=== PATIENT | female | born 1945 | race Caucasian/White ===

== ENCOUNTER 2018-02-02 06:09 | Day surgery (SDC) | payer MEDICARE, BC ==
[~2018-02-02] VITALS: Ht 154.9 cm; Wt 90.9 kg
--- NOTE | ~2018-02-02 | OP ---
PATIENT NAME: CASEY ENGLAND MEDICAL RECORD: [id number] :46 LOCATION:[facility] ADMISSION DATE: SURGEON: OSITO MONDRAGON DO DATE OF OPERATION: 02/02/2018 PROCEDURE: EGD with biopsies. INDICATION FOR PROCEDURE: Epigastric pain, nausea, history of MALT lymphoma. SCOPE: Olympus video gastroscope. MEDICATIONS: Propofol 150 mg IV per anesthesia. ESTIMATED BLOOD LOSS: Minimal. COMPLICATIONS: None. FINDINGS: Informed consent was given. The patient was made comfortable with the above medication. After reaching an adequate level of sedation by slow IV push, the patient was placed on her left side. The endoscope was then advanced under direct visualization through the mouth to the second portion of the duodenum. The upper, middle, and lower thirds of the esophagus appeared normal. At the GE junction, there was some mild evidence of LA class A reflux-induced esophagitis. The endoscope was advanced beyond the GE junction into the stomach and retroflexed to view the cardia and fundus. There was not an obvious hiatal hernia visualized on today's examination. Throughout the entire stomach, there was some congestion and erythema consistent with gastritis. Random biopsies were taken from all segments of the stomach to send for histopathology and to rule out the presence of H. pylori. There were multiple gastric polyps visualized on today's examination. A couple of biopsies were taken to submit for pathology. The endoscope was advanced beyond the pylorus into the duodenum. The entire exam and duodenum appeared normal. The endoscope was then withdrawn from the patient. The patient tolerated the procedure well and there were no complications. IMPRESSION: 1. LA class A reflux-induced esophagitis. 2. Congestion and erythema consistent with gastritis, biopsies taken. 3. Multiple gastric polyps which appear to be of the fundic gland type likely related to chronic PPI use, biopsies taken. PLAN AND RECOMMENDATIONS: 1. Discharge home when recovery parameters are met. 2. Follow up biopsy specimen results. 3. Continue Protonix as prescribed. 4. Add famotidine 40 mg q.h.s. 5. Gastric emptying scan to rule out gastroparesis based on symptoms. 6. Recommend continued surveillance upper endoscopies every 2 years based on history of MALT lymphoma. TRANSINT:[id number] Voice Confirmation ID: [id number] DOCUMENT ID: [id number] OPERATIVE REPORT [id number] USRY,JUAQUINA OSITO CORDERO DO at 1119 CC: [id number] DICTATION DATE: 02/02/1839 BIODIESEL PLANT MANAGER: 02/02/18 0939 [facility] 02/02/18 [address] [place] [address]
[2018-02-02] MEDS ORDERED: HYDROCODONE-APA1 TAB PO (06:40)
[2018-02-02] MEDS ORDERED: PROTONIX40 MG PO (06:40)
[2018-02-02] MEDS ORDERED: DOXEPIN HCL75 MG PO (06:41)
[2018-02-02] MEDS ORDERED: DITROPAN X10 MG/BOTT PO (06:41)
[2018-02-02] MEDS ORDERED: ESTRACE1 MG PO (06:41)
[2018-02-02] MEDS ORDERED: TOPROL XL25 MG PO (06:42)
[2018-02-02] MEDS ORDERED: ATIVAN1 MG PO (06:42)
[2018-02-02] MEDS ORDERED: SALAGEN5 MG PO (06:42)
[2018-02-02] MEDS ORDERED: REQUIP1 MG PO (06:43)
[2018-02-02] MEDS ORDERED: CYCLOBENZAPRINE10 MG PO (06:43)
[2018-02-02 06:59] VITALS: BP 139/95; Ht 154.9 cm; Wt 90.9 kg
[2018-02-02 08:15] LABS: HEMATOCRIT 37.4 % (36.0-48.0); MCHC 29.4 g/dL (31.0-37.0); MCV 81.5 fL (80.0-100.0); MEAN PLATELET VOLUME 8.9 fL (7.4-10.4); RBC 4.59 10x6/uL (4.00-5.40); RDW 16.4 % (11.5-14.5); WBC 8.1 10x3/uL (4.8-10.8)
== END 2018-02-02 09:39 | disposition home or self-care (01) ==
LOC: D.OPS 06:09
PROVIDERS: Anesthesiology
DX: R10.13 Epigastric pain (principal); K21.0 Gastro-esophageal reflux disease with esophagitis; R11.0 Nausea; K31.7 Polyp of stomach and duodenum; Z01.812 Encounter for preprocedural laboratory examination; I10 Essential (primary) hypertension; G47.30 Sleep apnea, unspecified

== ENCOUNTER → 2018-02-09 10:59 | Outpatient (CLI) | payer MEDICARE, BC ==
[2018-02-02 06:59] VITALS: BMI 37.8
[~2018-02-09 10:59] MED LIST: ATIVAN1 MG PO; CYCLOBENZAPRINE10 MG PO; DITROPAN X10 MG/BOTT PO; DOXEPIN HCL75 MG PO; ESTRACE1 MG PO; HYDROCODONE-APA1 TAB PO; PROTONIX40 MG PO; REQUIP1 MG PO; SALAGEN5 MG PO; TOPROL XL25 MG PO
== END | disposition home or self-care (01) ==
LOC: D.NM 10:59
DX: R10.13 Epigastric pain (principal); R11.0 Nausea

== ENCOUNTER 2019-01-11 07:31 | Day surgery (SDC) | payer MEDICARE, BC ==
[~2019-01-11] VITALS: Ht 154.9 cm; Wt 83.9 kg
[2019-01-11 08:26] LABS: HEMATOCRIT 42.1 % (36.0-48.0); HEMOGLOBIN 13.7 g/dL (12-16); MCH 28.5 pg (26.0-34.0); MCHC 32.5 g/dL (31.0-37.0); MCV 87.7 fL (80.0-100.0); MEAN PLATELET VOLUME 9.6 fL (7.4-10.4); RBC 4.8 10x6/uL (4.00-5.40); RDW 13.2 % (11.5-14.5); WBC 8.6 10x3/uL (4.8-10.8)
[2019-01-11 09:01] VITALS: BP 122/57; Ht 154.9 cm; Wt 83.9 kg
--- NOTE | 2019-01-11 10:46 | NUR ---
1025-RECD FROM GI LAB. ALERT. VOLUIS IN TO REPORT FINDINGS. 1035-FULL LIQUIDS SERVED, ONLY WANTS SODA/JUICE.
--- NOTE | 2019-01-11 11:07 | NUR ---
1100-IV D/C AND DISCHARGE INSTRUCTIONS REVIEWED 1105-D/C HOME VIA WHEELCHAIR WITH FAMILY.
--- NOTE | 2019-01-13 09:41 | OP ---
PATIENT NAME: CASEY ENGLAND MEDICAL RECORD: [id number] :46 LOCATION:D.OPS ADMISSION DATE: SURGEON: OSITO MONDRAGON DO DATE OF OPERATION: 01/11/2019 PROCEDURE: Colonoscopy with polypectomy. INDICATIONS FOR PROCEDURE: History of MALT lymphoma, generalized abdominal pain, nausea and vomiting, chronic constipation. SCOPE: Olympus video pediatric colonoscope. MEDICATIONS: Propofol 430 mg IV per anesthesia. WITHDRAWAL TIME: 26 minutes. ESTIMATED BLOOD LOSS: Minimal. COMPLICATIONS: None. FINDINGS: Informed consent was given. The patient was made comfortable with the above medication. After reaching an adequate level of sedation by slow IV push, the patient was placed on her left side. A digital rectal examination was performed and revealed some external hemorrhoids. The endoscope was then advanced under direct visualization through the rectum to the cecum and terminal ileum. The endoscope was slowly withdrawn and the mucosa was carefully examined. The prep quality was fair. There were multiple polyps visualized on today's examination. Three of these polyps were located in the transverse colon. They were benign appearing and sessile and ranged in size from 3-8 mm in diameter. Two of these were removed using a hot snare and the third polyp was removed using hot forceps. In the descending colon, there was a single benign appearing sessile polyp, which measured approximately 4 mm in diameter. It was removed using hot forceps. In the sigmoid colon, there was a single polyp, which was benign appearing and sessile and measured approximately 8 mm in diameter. It was removed using a hot snare. There was evidence of moderate diverticulosis involving the sigmoid colon. Retroflexion was performed in the rectum with a normal appearing rectal wall. The endoscope was withdrawn from the patient. The patient tolerated the procedure well and there were no complications. IMPRESSION: 1. Multiple polyps as described above, removed using a combination of hot forceps and a hot snare. 2. Moderate diverticulosis of the sigmoid colon. PLAN AND RECOMMENDATIONS: 1. Discharge home when recovery parameters are met. 2. Follow up biopsy specimen results. 3. High fiber diet. 4. Consider supplementing diet with 1 tablespoon of Metamucil daily. 5. Continue current medications. 6. Proceed with upper endoscopy as scheduled for generalized abdominal pain, nausea and vomiting, and history of MALT lymphoma. 7. We will follow up in GI clinic after upper endoscopy is completed for further workup of symptoms. OPERATIVE REPORT [id number] CASEY ENGLAND 8. If bowel movements do not improve with supplementation of fiber, consider trial of Linzess 145 mcg daily. TRANSINT:[id number] Voice Confirmation ID: [id number] DOCUMENT ID: [id number] OSITO MONDRAGON DO at 0941 CC: [id number] DICTATION DATE: 01/11/19 1015 CUSTOMER RELATIONS COORDINATOR: 01/11/19 1026 [facility] 01/11/[address] [address]
== END 2019-01-11 11:05 | disposition home or self-care (01) ==
LOC: D.OPS 07:31
PROVIDERS: Anesthesiology
DX: K57.30 Diverticulosis of large intestine without perforation or abscess without bleeding (principal); D12.4 Benign neoplasm of descending colon; D12.5 Benign neoplasm of sigmoid colon; D12.3 Benign neoplasm of transverse colon; Z85.79 Personal history of other malignant neoplasms of lymphoid, hematopoietic and related tissues; Z01.812 Encounter for preprocedural laboratory examination

== ENCOUNTER 2019-01-25 09:14 | Day surgery (SDC) | payer MEDICARE, BC ==
[~2019-01-25] VITALS: Ht 154.9 cm; Wt 84.1 kg
[2019-01-25 09:52] LABS: BASOPHILS 0.6 % (0-2); EOSINOPHILS 5.1 % (0-7); HEMATOCRIT 42.5 % (36.0-48.0); HEMOGLOBIN 13.9 g/dL (12-16); IMMATURE GRANULOCYTES 0.1 % (0-5); LYMPHOCYTES 25.2 % (15-50); MCH 29.1 pg (26.0-34.0); MCHC 32.7 g/dL (31.0-37.0); MCV 88.9 fL (80.0-100.0); MEAN PLATELET VOLUME 9.3 fL (7.4-10.4); MONOCYTES 6.2 % (2-11); NEUTROPHILS 62.8 % (40-80); PLATELET COUNT 186 10x3/uL (130-400); RBC 4.78 10x6/uL (4.00-5.40); RDW 13.3 % (11.5-14.5); WBC 8.9 10x3/uL (4.8-10.8)
[2019-01-25 10:10] LABS: ANION GAP 13.5 mmol/L (8-16); CALCIUM 8.9 mg/dL (8.5-10.1); CARBON DIOXIDE 29.8 mmol/L (21.0-32.0); CREATININE - SERUM 0.9 mg/dL (0.6-1.3); POTASSIUM - SERUM 4.3 mmol/L (3.5-5.1)
[2019-01-25] MEDS ORDERED: HYDROXYZINE HCL50 MG PO (10:16)
[2019-01-25 10:23] VITALS: Ht 154.9 cm; Wt 84.1 kg
--- NOTE | 2019-01-25 12:25 | NUR ---
DC INSTRUCTIONS GIVEN TO PT/FAMILY. STATE UNDERSTANDING. DC'D IV CATH FULLY INTACT.
--- NOTE | 2019-01-25 13:57 | NUR ---
PT LEFT UNIT VIA WC AT 1250
--- NOTE | 2019-01-27 12:06 | OP ---
PATIENT NAME: CASEY ENGLAND MEDICAL RECORD: [id number] :46 LOCATION:D.OPS ADMISSION DATE: SURGEON: OSITO MONDRAGON DO DATE OF OPERATION: 01/25/2019 PROCEDURE: EGD with biopsies. INDICATIONS FOR PROCEDURE: History of MALT lymphoma, nausea and vomiting, generalized abdominal pain. SCOPE: Olympus video gastroscope. MEDICATIONS: Propofol 150 mg IV per anesthesia. ESTIMATED BLOOD LOSS: Minimal. COMPLICATIONS: None. FINDINGS: Informed consent was given. The patient was made comfortable with the above medication. After reaching an adequate level of sedation by slow IV push, the patient was placed on her left side. The endoscope was advanced under direct visualization through the mouth to the second portion of the duodenum. The entire esophagus appeared normal. At the GE junction, there were minor changes consistent with LA class A reflux-induced esophagitis. The endoscope was advanced beyond the GE junction into the stomach and retroflexed to view the cardia and fundus, which appeared normal. Throughout the entire stomach, there were changes consistent with possible gastritis. There was congestion of the mucosa, erythema, and granularity. Multiple cold forceps biopsies were taken to submit for histopathology and to rule out the presence of H. pylori. There were multiple benign-appearing fundic gland type polyps present in the stomach. A single biopsy was taken to confirm their benign nature. The endoscope was advanced beyond the pylorus into the duodenum. The duodenum appeared normal down to the second portion. Random cold forceps biopsies were taken to submit for histopathology. The endoscope was withdrawn from the patient. The patient tolerated the procedure well and there were no complications. IMPRESSION: 1. LA class A reflux-induced esophagitis. 2. Gastritis characterized mostly by congestion of the stomach with some erythema and granularity. 3. Multiple benign-appearing gastric polyps. Biopsies pending. PLAN AND RECOMMENDATIONS: 1. Discharge home when recovery parameters are met. 2. Follow up biopsy specimen results. 3. GERD diet and reflux precautions. 4. Continue current medications. 5. Add famotidine 40 mg tablets once daily. 6. We will provide a trial of dicyclomine 20 mg b.i.d. p.r.n. abdominal pain. 7. Follow up in GI clinic in 2-3 weeks. TRANSINT:[id number] Voice Confirmation ID: [id number] DOCUMENT ID: [id number] OPERATIVE REPORT [id number] CASEY ENGLAND NATHAN A DO at 1206 CC: [id number] DICTATION DATE: 01/25/19 1154 SOFTWARE DEVELOPMENT LEADER: 01/25/19 1241 [facility] 01/25/19 [facility] [address] [id number]
== END 2019-01-25 12:50 | disposition home or self-care (01) ==
LOC: D.OPS 09:14
PROVIDERS: Anesthesiology; ATTEND Internal Medicine Gastroenterology
DX: K29.50 Unspecified chronic gastritis without bleeding (principal); K31.7 Polyp of stomach and duodenum; K21.0 Gastro-esophageal reflux disease with esophagitis; Z85.79 Personal history of other malignant neoplasms of lymphoid, hematopoietic and related tissues; Z01.812 Encounter for preprocedural laboratory examination

== ENCOUNTER 2020-05-08 08:56 | Day surgery (SDC) | payer MEDICARE, BC ==
[~2020-05-08] VITALS: Ht 154.9 cm; Wt 86.4 kg
[~2020-05-08 08:56] MED LIST changes: +HYDROXYZINE HCL50 MG PO
[2020-05-08 09:31] LABS: BASOPHILS 0.7 % (0-2); EOSINOPHILS 5.2 % (0-7); HEMOGLOBIN 14.1 g/dL (12-16); IMMATURE GRANULOCYTES 0.1 % (0-5); LYMPHOCYTES 36.7 % (15-50); MCH 28.3 pg (26.0-34.0); MCHC 30.7 g/dL (31.0-37.0); MCV 92.4 fL (80.0-100.0); MEAN PLATELET VOLUME 8.8 fL (7.4-10.4); MONOCYTES 7.6 % (2-11); NEUTROPHILS 49.7 % (40-80); PLATELET COUNT 190 10x3/uL (130-400); RBC 4.98 10x6/uL (4.00-5.40); RDW 13.3 % (11.5-14.5); WBC 6.9 10x3/uL (4.8-10.8)
[2020-05-08 09:33] LABS: ANION GAP 7.5 mmol/L (8-16); CALCIUM 8.7 mg/dL (8.5-10.1); CARBON DIOXIDE 31.8 mmol/L (21.0-32.0); POTASSIUM - SERUM 4.3 mmol/L (3.5-5.1)
[2020-05-08] MEDS ORDERED: KLONOPIN0.5 MG PO (09:40)
[2020-05-08 09:52] VITALS: BP 146/67; Ht 154.9 cm; Wt 86.4 kg
--- NOTE | 2020-05-09 07:11 | OP ---
PATIENT NAME: CASEY ENGLAND MEDICAL RECORD: [id number] :46 LOCATION:D.OPS ADMISSION DATE: SURGEON: OSITO MONDRAGON DO DATE OF OPERATION: 05/08/2020 PROCEDURE: EGD with biopsies and balloon dilation. INDICATION FOR PROCEDURE: Generalized abdominal pain, gas and bloating, nausea, dysphagia, GERD, history of MALT lymphoma. SCOPE: Olympus video gastroscope. MEDICATIONS: Propofol 150 mg IV per anesthesia. ESTIMATED BLOOD LOSS: Minimal. COMPLICATIONS: None. FINDINGS: Informed consent was given. The patient was made comfortable with the above medication. After reaching an adequate level of sedation by slow IV push, the patient was placed on her left side. The endoscope was advanced under direct visualization through the mouth to the second portion of the duodenum with ease. The upper, middle, and lower thirds of the esophagus appeared normal. Cold forceps biopsies were taken randomly from the mid esophagus to rule out the presence of eosinophils. At the GE junction, there were minor changes consistent with LA class A reflux-induced esophagitis and some possible esophageal stenosis. An 18-20 mm CRE dilating balloon was used to dilate the distal esophagus to 20 mm maximum diameter successfully. The endoscope was advanced beyond the GE junction into the stomach and retroflexed to view the cardia which appeared normal. The fundus also appeared normal. In the fundus and gastric body, there were multiple gastric polyps, which appeared benign and appeared consistent with fundic gland polyps. One was biopsied using cold forceps to submit for histopathology and to confirm the benign nature. Throughout the body, antrum, and prepyloric regions, there were patchy areas of erythema and granularity and friability. Cold forceps biopsies were taken from the antrum and incisura to submit for histopathology and to rule out the presence of H. pylori. The endoscope was advanced beyond the pylorus into the duodenum which appeared normal to the second portion. The endoscope was withdrawn from the patient. The patient tolerated the procedure well and there were no complications. IMPRESSION: 1. LA class A reflux-induced esophagitis. 2. Mild esophageal stenosis of the distal esophagus and GE junction, status post dilation to 20 mm maximum diameter. 3. Chronic gastritis changes. 4. Multiple benign-appearing fundic gland type gastric polyps, status post biopsy with cold forceps. PLAN AND RECOMMENDATIONS: 1. Discharge home when recovery parameters are met. 2. Follow up biopsy specimen results. 3. GERD diet and reflux precautions. 4. Continue current medications. 5. Pantoprazole 40 mg daily. OPERATIVE REPORT [id number] CASEY ENGLAND 6. Carafate suspension 1 g q.i.d. from other medications by 2 hours. 7. Gastric emptying scan regarding upper digestive symptoms, which sound consistent with gastroparesis. 8. Follow up in GI clinic in 3-4 weeks. 9. If dysphagia persists, consider manometry study. NTS:[id number] Voice Confirmation ID: [id number] DOCUMENT ID: [id number] OSITO MONDRAGON DO at 0711 CC: [id number] DICTATION DATE: 05/08/20 105 SENIOR CORE JAVA DEVELOPER: 05/08/209 [facility] 05/08/20 [facility] [address] [place] [address]
== END 2020-05-08 11:35 | disposition home or self-care (01) ==
LOC: D.OPS 08:56
PROVIDERS: Anesthesiology; ATTEND Internal Medicine Gastroenterology
DX: R10.84 Generalized abdominal pain (principal); R14.0 Abdominal distension (gaseous); R11.0 Nausea; R13.10 Dysphagia, unspecified; K21.9 Gastro-esophageal reflux disease without esophagitis; Z85.72 Personal history of non-Hodgkin lymphomas; K21.0 Gastro-esophageal reflux disease with esophagitis; K22.2 Esophageal obstruction; J45.909 Unspecified asthma, uncomplicated; K76.0 Fatty (change of) liver, not elsewhere classified; Z86.010 Personal history of colon polyps

== ENCOUNTER 2020-07-10 00:05 | Inpatient (IN) | payer MEDICARE, BC ==
[2020-07-07 11:47] LABS: BASOPHILS 0.7 % (0-2); EOSINOPHILS 5.1 % (0-7); HEMATOCRIT 43.9 % (36.0-48.0); HEMOGLOBIN 13.5 g/dL (12-16); LYMPHOCYTES 37.1 % (15-50); MCH 28.3 pg (26.0-34.0); MCHC 30.8 g/dL (31.0-37.0); MEAN PLATELET VOLUME 8.8 fL (7.4-10.4); NEUTROPHILS 49.1 % (40-80); PLATELET COUNT 191 10x3/uL (130-400); RBC 4.77 10x6/uL (4.00-5.40); RDW 13.8 % (11.5-14.5); WBC 5.7 10x3/uL (4.8-10.8)
[2020-07-07 11:58] LABS: ANION GAP 10.4 mmol/L (8-16); APTT 47.9 SECONDS (22.8-39.4); CALCIUM 9.4 mg/dL (8.5-10.1); CARBON DIOXIDE 32.7 mmol/L (21.0-32.0); INR 1.55 (0.85-1.17); POTASSIUM - SERUM 4.1 mmol/L (3.5-5.1); PROTIME 18.4 SECONDS (11.6-15.0)
[2020-07-07 12:23] LABS: UDS - AMPHET NEGATIVE QUAL (NEGATIVE); UDS - BARB NEGATIVE QUAL (NEGATIVE); UDS - BENZO NEGATIVE QUAL (NEGATIVE); UDS - COCAINE NEGATIVE QUAL (NEGATIVE); UDS - OPIATE NEGATIVE QUAL (NEGATIVE); UDS - PCP NEGATIVE QUAL (NEGATIVE); UDS - THC NEGATIVE QUAL (NEGATIVE)
--- NOTE | 2020-07-09 23:50 | NUR ---
REC'D PT TO RM 1273 VIA W/C PER ED NURSE TO AWAIT ADMISSION AFTER MIDNIGHT PER DR MORIN ORDERS. ADMISSION CALLS UNIT WANTING TO KNOW WHAT STATUS TO PLACE PAITENT IN. PT TO NOT BE ADMITTED UNTIL AFTER MIDNIGHT AND HAS A PREIN NUMBER. THIS RN NOTICES PT HAS BEEN FULLY ADMITTED W/AN ADMISSION NUMBER AND CALLS ER ADMISSIONS TO INFORM THEM THAT PT HAS A PREIN NUMBER. MEDICAL RECORDS WILL HAVE TO MERGE CHARTS. PT'S INSURANCE WILL NOT COVER UNTIL DAY OF SURGERY.
[~2020-07-10] VITALS: Ht 154.9 cm; Wt 104.3 kg
[2020-07-10] VITALS (7 sets, daily range): BP systolic 108–153; BP diastolic 53–68; BMI 43.5
--- NOTE | ~2020-07-10 | OP ---
PATIENT NAME: CASEY ENGLAND MEDICAL RECORD: [id number] :46 LOCATION:[facility] D.1273 ADMISSION DATE:07/11/20 SURGEON: MARY MORIN MD DATE OF OPERATION: 07/10/2020 PREOPERATIVE DIAGNOSES: 1. Rectocele. 2. Enterocele. POSTOPERATIVE DIAGNOSES: 1. Rectocele. 2. Enterocele. PROCEDURES PERFORMED: 1. Enterocele repair. 2. Posterior colporrhaphy with fascial graft placement. SURGEON: MARY MORIN MD ANESTHESIOLOGIST: Tera York MD ANESTHETIC: General. FINDINGS: Anterior enterocele present. Rectocele present with prolapse of the posterior vault to the introitus. Unremarkable bladder mucosa and good efflux of urine from both ureteral orifices. SPECIMENS REMOVED: None applicable. SPECIMEN DISPOSITION: None applicable. ESTIMATED BLOOD LOSS: 150 mL. FLUIDS: 1100 mL of lactated Ringer's. URINE OUTPUT: Quantity sufficient. COMPLICATIONS: None. DRAIN: Esteban to gravity with vaginal packing. INDICATION: The patient is a 74-year-old female with pelvic prolapse and splinting. The patient states that there is an uncomfortable bulge consistently at her introitus. The patient has been given options of attempted pessary versus surgical intervention and the patient desires surgery. Risks, benefits, and limitations have been described. DESCRIPTION OF PROCEDURE: After informed consent is assured, the patient is taken to the operating room where anesthetic is obtained. The patient is now prepped and draped and placed in stirrups. The posterior defect and enterocele are examined. The space is injected with 0.5% lidocaine solution with epinephrine. After this full-thickness injection of approximately 20 mL of diluted lidocaine with epinephrine is placed, an incision is made with 15 blade across the posterior fourchette. The mucosa of the posterior vault is undermined with Metzenbaum scissors. This is carried out all the way to the OPERATIVE REPORT [id number] CASEY ENGLAND apex of the defect at the top of the vagina. The mucosa is now dissected free both right and left sides with sharp dissection as well as with use of neuro patties. Once the full-thickness dissection is completed, the enterocele sac is identified and entered sharply. The bowel is packed away with a laparotomy sponge and both the right and left uterosacral ligaments are identified. Uterosacral ligaments are now plicated with Ethibond stitch and a stitch is carried through the vaginal mucosa in this complex that has been created. The hernia sac is now reduced and closed with 2 pursestring stitches. Attention is now directed posteriorly. A large defect is noted with diminished tissue for repair. At the proximal segment of the vagina, a layer of endopelvic fascia is pulled together and horizontal mattress stitches are applied to repair the defect that is seen here. The superior defect is repaired using a fascial graft. The vaginal graft is reconstituted after being cut with 2 arms that will be placed over the sacrospinous ligaments. Sacrospinous ligaments are located and Capio SLIM suture dental technician metal is used to place a Prolene stitch through each ligament on both right and left sides. The stitch is brought through the arms of the fascial graft and tied into place. The fascial graft is now cut to fit to the posterior vault and interrupted Vicryl stitches are used to place this to the endopelvic fascia. Mucosa is trimmed and closed over this. A V-shaped incision is made over the perineal body and this tissue is removed. The skin here is closed with a subcuticular stitch and secured into the vaginal vault. Cystoscopy is now performed. The aforementioned stitch that was brought through the uterosacral ligament complex through the vagina is tied, securing the apex to the vaginal support. Cystoscopy is now performed. Mucosa is intact and good flow of urine seen both from right and left ureters. The cystoscopy is discontinued, Esteban catheter started, and vaginal packing placed. Sponge, lap, needle counts correct times 2. The patient is awakened and went to the recovery area in stable condition. NTS:[id number] Voice Confirmation ID: [id number] DOCUMENT ID: [id number] MARY MORIN MD CC: [id number] DICTATION DATE: 07/24/20 1352 INFANT ROOM TEACHER: 07/24/201927 DIS IN 07/14/20 [facility] [address] [place] [address]
[~2020-07-10 00:05] MED LIST changes: +CARAFATE1 G/10 ML PO; +KLONOPIN0.5 MG PO; +LAMICTAL200 M1 PO; +LEXAPRO20 MG PO; +REGLAN5 MG PO; +TRAZODONE TAB 100 PO; +TYLENOL W/CODEI1 TAB PO
[2020-07-10] MEDS ORDERED: ACETAMINOPHEN500 M1 PO (00:15)
--- NOTE | 2020-07-10 00:50 | NUR ---
ADMISSIONS CONTINUES TO GET PT'S ADMISSONS STATUS CORRECTED. ADMISSION COMPLETED IN INCORRECT PT #. PT LYING AWAKE IN BED. ASSISTED W/GETTING WIFI CONNECTED ON HER PHONE. PT REMINDED THAT SHE IS TO BE NPO. PT AGREEABLE. FALL PRECAUTIONS THAT PT IS AGREEABLE PUT INTO PLACE. YELLOW STAR PLACED ON DOOR. YELLOW GOWN PROVIDED, YELLOW ID BRACLET PLACED ON PT. NON SKID SOCKS PROVIDED (PT HAS HER OWN NON SKID HOUSE SHOES THAT SHE PREFERS), BED IN LOW POSITION, SIDE RAILS UP X 2. CALL LIGHT AND PHONE AT PT'S BEDSIDE. CLEAR PATH TO BR. PT DENIES NEEDING ASSISTANCE W/GETTING OOB, BUT OFFER MADE TO RING CALL LIGHT IF SHE FEELS THE NEED FOR ASSISTANCE WHEN GETTING OOB. PT AGREEABLE. PT REFUSES BED ALARM. SIGNS RELEASE OF RESPONSIBILITY. DENIES NEEDS OTHER THAN HER SLEEPING MEDICATION. SLEEP MED TRAZODONE 50MG PO GIVEN (SCANNED UNDER [id number]).
--- NOTE | 2020-07-10 02:00 | NUR ---
ROUNDS MADE. PT RESTING TO RT SIDE W/EYES CLOSED. HOB ELEVATED. RESP EVEN AND UNLABORED. PT LEFT UNDISTURBED AT THIS TIME TO ALLOW FOR REST.
--- NOTE | 2020-07-10 04:00 | NUR ---
ROUNDS MADE. PT NOW RESTING IN LOW CARRINGTON'S POSITION W/EYES CLOSED. RESP EVEN AND UNLABORED. PT LEFT UNDISTURBED.
--- NOTE | 2020-07-10 05:15 | NUR ---
Luis Miguel CALZADA RN TO BEDSIDE TO ASSIST PT OOB UP TO BR. PT ABLE TO VOID. RETURNS TO BED. LR STARTED TO LEFT PIV AT 50ML, IV PREOP MEDS GIVEN. SEE EMAR. PT CURRENTLY DENIES PAIN. SURGERY PREOP CHECKLIST COMPLETED. SEE PROCESS INTERVENTIONS. PT GOWNED IN YELLOW GOWN. REFUSES NONSKID BLUE SOCKS. BED REMAINS IN LOW POSITION. SIDE RAILS UP X 2. CALL LIGHT AND PHONE AT PT'S SIDE./
--- NOTE | 2020-07-10 11:00 | NUR ---
RECEIVED BY BED FROM RECOVERY WITH BEDSIDE REPORT FROM Dixon CORDOVA RN. PT IS STILL DROWSY BUT DOES RESPOND TO VERBAL COMMAND. O2 SAT 94% WITH PT CURRENTLY ON 6L O2 VIA NC, PER RECOVERY ROOM NURSE RESP THERAPY IS AWARE OF THIS DUE TO PT RECIEVING UPDRAFT PRIOR TO COMING DOWN. IV INFUSING TO L HAND PER ORDERS. GIRARD CATH TO BEDSIDE DRAIN WITH 50ML DARK BLUE URINE NOTED. SCD BILAT PER ORDERS AND PUMP TURNED ON . PER PT REQUEST TILTED TO LEFT SIDE, NOTED VAG PACKING IN PLACE, SMALL AMOUNT BLEEDING NOTED TO UNDERPAD WHICH IS CHANGED EASILY. ABDOMEN SOFT TO TOUCH WITH BOWEL SOUNDS PRESENT BUT NOTED TO BE DECREASED IN BOTH LOWER QUAD. CALL LIGHT IN REACH WITH SIDE RAILS UP X 2.
--- NOTE | 2020-07-10 11:18 | NUR ---
DR MORIN ON UNIT QUESTIONS URINE OUTPUT, REPORT GIVEN THAT 50ML WAS NOTED TO COLLECTION CANISTER. ORDERS RECEIVED TO HOLD TORDOL UNTIL INCREASE OUTPUT NOTED AND GIVE 1000ML LR BOLUS. ALSO REPORTED PT 02SAT AND THAT SHE DID NOT BRING HER C-PAP, CONSULT RESP THEREPY PER MD.
--- NOTE | 2020-07-10 11:30 | NUR ---
UNDERPAD CHANGED AND PT MOVED UP IN BED WITH ASSISTANCE FROM Nirmal NOEL RN. PT ABLE TO TURN HERSELF TO LEFT LATERAL. IV RATE INCREASED TO 999ML/HR. SIDE RAILS UP X 2 WITH CALL LIGHT IN REACH. PT STILL VERY DROWSY BUT ABLE TO FOLLOW COMMANDS, O2 VIA NC REMAINS AT 6L WITH SAT OF 92-94%, resp therepy has been consulted.
--- NOTE | 2020-07-10 12:30 | NUR ---
FLUID BOLUS COMPLETED, 150ML BLUE URINE NOTED TO COLLECTION CANISTER OF GIRARD. PT ABLE TO TAKE MEDS SCANNED TO EMAR, ALSO TOLERATES WATER AND GIVEN LEMON MODOC SODA REQUESTED. REMAINS ON HER LEFT SIDE REQUESTED, SIDE RAILS UP X 2 WITH CALL LIGHT IN REACH.
--- NOTE | 2020-07-10 14:00 | NUR ---
PT RESTING WITH EYES CLOSED AND RESP UNLABORED, O2 SAT 95-98% AT THIS TIME. OXYGEN LEVEL DECREASED TO 4L VIA NC. CALL LIGHT IN REACH. 100ML BLUE URINE NOTED TO COLLECTION CANISTER.
--- NOTE | 2020-07-10 15:45 | NUR ---
PT MORE AWAKE AND ASKING FOR PAIN MED RATES PAIN AT 8/10 AND STATES IT IS CONSTANT. PERCOCET 5/325MG GIVEN WITH UNDERSTANDING PAIN WILL BE REASSESSED IN AN HOUR AND IF NEEDED ADDITIONAL PERCOCET COULD BE GIVEN. PT STATED THAT SHE WOULD RATHER NOT HAVE DILAUDID DUE TO WAY IT MAKES HER FEEL. LARGE CUP OF ICE REQUESTED.
--- NOTE | 2020-07-10 16:30 | NUR ---
PT CONTINUE TO RATE PAIN AT 6/10, 2ND PERCOCET 5/325MG GIVEN PO. SHE STATES UNDERSTANDING PAIN MED CAN NOT BE GIVEN UNTIL 4 HOURS FROM TIME OF 2ND DOSE. MOVED UP WITH ASSISTANCE AND TURNED TO HER RIGHT SIDE. LARGE ICE WATER REQUESTED. SIDE RAILS UP X 2 WITH PHONE AND CALL LIGHT IN REACH.
--- NOTE | 2020-07-10 17:45 | NUR ---
PT RESTING WITH EYES CLOSED, O2 SAT 96% WHILE SLEEPING. NO DISTRESS NOTED, CALL LIGHT IN REACH WITH SIDE RAILS UP X 2.
--- NOTE | 2020-07-10 19:04 | NUR ---
DR MORIN CALLED TO ASK IF HOME MEDS NEED TO BE RESTARTED. MD GIVES ORDERS TO RESTART HOME MEDS THAT PT REPORTS SHE TAKES.
--- NOTE | 2020-07-10 19:30 | NUR ---
ROUNDS MADE FOR SHIFT ASSESSMENT. PT CURRENTLY SLEEPING W/HOB ELEVATED. NC REMAINS IN PLACE. RATE INCREASED TO 6L TO MAINTAIN O2 SAT OF 95%. RESP EVEN AND UNLABORED. PT LEFT UNDISTURBED AT THIS TIME.
--- NOTE | 2020-07-10 20:00 | NUR ---
RN TO BEDSIDE TO PERFORM SHIFT ASSESSMENT. PT WAKENED FOR ASSESSMENT AND PAIN ASSESSMENT. PT REPORTS RT SHOULDER PAIN. OFFER MADE TO ASSIST W/REPOSITIONING. PT AGREEABLE. SEE FLOWSHEET FOR DOCUMENTATION. PT ASSISTED W/REPOSITIONING TO LEFT LATERAL TILT. PILLOWS PROVIDED FOR PT'S COMFORT. PT REPORTS SHE FEELS PAIN, BUT UNABLE TO GIVE A PAIN SCORE BEFORE DOZING BACK OFF. SCHEDULED PO MEDS GIVEN. SEE EMAR. BED IN LOW POSITION, SIDE RAILS UP X 2, BEDSIDE TABLE MOVED TO LEFT SIDE OF BED FOR PT'S EASY REACH. NS REMAINS ON PT. RATE DECREASED TO 4L TO MAINTAIN O2 SAT.
--- NOTE | 2020-07-10 21:15 | NUR ---
ROUNDS MADE. PT CONTINUES TO BE DROWZY. ABLE TO WAKE EASILY, BUT DRIFTS OFF TO SLEEP WHILE RN SPEAKING TO HER. ATTEMPTS TO ASSESS PAIN, PT UNABLE TO REMAIN AWAKE TO DESCRIBE OR C/O PAIN. NEW BAG OF LR UP TO INFUSE AT 125ML/HR. URINE OUTPUT NOTED 125ML. LIGHT BLUE URINE NOTED.
--- NOTE | 2020-07-10 22:15 | NUR ---
ROUNDS MADE. PT REMAINS IN HIGH CARRINGTON'S W/EYES CLOSED. RESP EVEN. NC REMAINS IN PLACE. PULSE OX REMAINS ON PT'S FINGER. NO DISTRESS NOTED. PT LEFT UNDISTURBED TO ALLOW FOR REST.
--- NOTE | 2020-07-10 23:18 | NUR ---
ROUNDS MADE. PT CONTINUES TO SLEEP IN HIGH CARRINGTON'S. NO DISTRESS NOTED. PT LEFT UNDISTURBED AT THIS TIME.
--- NOTE | 2020-07-11 | NUR ---
RN TO BEDSIDE FOR ROUNDING,VITALS AND I&O. PT WAKENED W/MODERATE STIMULUS. BECOMES AWAKE AND ALERT ENOUGH TO RELAY DISCOMFORT, BUT DOES NOT REQUEST PAIN MEDICATION. PT QUESTIONED IF SHE'D LIKE TO REPOSITION. PT DOES. THIS RN AND Rachel JARA RN ASSIST PT WIH REPOSITIONING TO RT SIDE. PILLOWS PROVIDED FOR COMFORT. ICE CHIPS SERVED TO PT. BED REMAINS IN LOW POSITION. SIDE RAILS UP X 2 CALL LIGHT AT SIDE. BEDSIDE TABLE ON RT SIDE OF PT FOR EASY REACH. NO FURTHER NEEDS VOICED.
[2020-07-11 00:02] VITALS: BP 123/58
--- NOTE | 2020-07-11 01:44 | NUR ---
pt's iv pump sounding. this rn to bedside for assessment. pt remains to rt side. sleeping, but stirs with movement in the room. pt's hand repositioned. nash cath noted to have approx 60ml in urometer.
--- NOTE | 2020-07-11 03:45 | NUR ---
ROUNDS MADE. PT AWAKE AND ALERT. PAIN AND NEEDS ASSESSED. PT DENIES PAIN. REQUEST FRESH COLA. FRESH ICE SERVED AND PT'S COLA SERVED. NC AT 4L NEEDED TO MAINTAIN O2 SAT WHILE PT AWAKE AND TALKING. APPROX 250ML URINE NOTED IN UROMETER. PT ABLE TO HOLD CONVERSATION FOR SEVERAL MINUTES WITH RN.
--- NOTE | 2020-07-11 04:30 | NUR ---
RN TO BEDSIDE FOR ROUNDING. PT AA&O. PT NOW C/O KNEE PAIN AND REPORTS SHE DOESN'T FEEL LIKE SHE CAN MOVE IT. PAIN MEDICATION OFFERED. PT ACCEPTS. RATES KNEE PAIN 08/03. PERCOCET 5MG PO GIVEN AND 2 CUPS JEELO SERVED. VITAL SIGNS OBTAINED. SEE FLOWSHEET. NEW BAG OF LR TO ROOM TO ADMIN AFTER LAST 100ML IN PRESENT BAG COMPLETE. PT DECLINES REPOSITIONING AT THIS TIME UNTIL PAIN MEDICATION BEGINS TO HELP HER KNEE PAIN. P DENIES FURTHER NEEDS.
[2020-07-11 04:51] VITALS: BP 117/57
--- NOTE | 2020-07-11 05:30 | NUR ---
PT REPOSITIONED W/MINIMAL ASSISTANCE TO LEFT SIDE. PINK PAD/CHUX CHANGED. GIRARD EMPTIED W/APPROX 900ML NOTED. IV PUMP CLEARED.
--- NOTE | 2020-07-11 06:11 | NUR ---
RN TO BEDSIDE TO ADMIN SCHEDULED MEDS. SEE EMAR.
[2020-07-11 07:17] VITALS: BP 105/51
--- NOTE | 2020-07-11 07:17 | NUR ---
RECEIVED PT LYING TO LEFT SIDE IN BED. AWAKE. AAO X 3. VSS. HRRR WITHOUT AUDIBLE MURMUR. BBS CLEAR. BS HYPOACTIVE TO LOWER QUADS. ABDOMEN SOFT/NON-DISTNEDED. VAG PACKING NOTED WITH BRIGHT RED BLOOD NOTED TO EXPOSED PORTION. SCANT AMT OF BRIGHT RED BLOOD NOTED TO TOWEL UNDER PATIENT. NEG HOMANS' SIGN. PPP. NO EDEMA NOTED TO BLE. SCDS ON BLE. PUMP ON. GIRARD TO GRAVITY DRAINING LIGHT GREEN URINE-CLEAR. PIV SITE CLEAR TO LEFT HAND. LR INFUSING AT 125 ML/HR. PT C/O PRESSURE TO RECTUM AND VAGINAL AREAS. STATES "IT HURTS WHEN I COUGH". STATES "I'VE HAD A COUGH FOR A LONG TIME". DENIES SHORTNESS OF BREATH OR PRODUCTIVE COUGH. BBS NOTED TO BE CLEAR AT THIS TIME. PT REPOSITIONS TO SEMI-CARRINGTON'S POSITION FOR CLEAR LIQUID DIET. DENIES NAUSEA. REQUESTS AND RECEIVES JELLO. PT MOVES WELL IN BED PER SELF. SR UP X 2. CALL LIGHT IN REACH. YELLOW GOWN, ARMBAND AND STAR IN PLACE.
--- NOTE | 2020-07-11 08:25 | NUR ---
PT CONSUMES 90% OF CLEAR LIQUID DIET. INSTRUCTED ON INCENTIVE SPIROMETER. PULLS 800 AT THIS TIME.
--- NOTE | 2020-07-11 09:28 | NUR ---
DR MORIN CALLS. PT STATUS UPDATE GIVEN, INCLUDING O2 SAT'S AND PT ON 4 LITERS O2 PER N/C. ORDERS RECEIVED.
--- NOTE | 2020-07-11 09:30 | NUR ---
PIV CONVERTED TO SALINE LOCK.
--- NOTE | 2020-07-11 09:35 | NUR ---
RESPIRATORY STAFF NOTIFIED OF NEED FOR UPDRAFT NOW.
--- NOTE | 2020-07-11 09:41 | NUR ---
DR ELMER BRITT.
--- NOTE | 2020-07-11 09:59 | NUR ---
REGULAR DIET SERVED. PT ASSISTED WITH PREPARING BISCUIT. PT SITS UP IN BED.
--- NOTE | 2020-07-11 10:15 | NUR ---
PT CONSUMES BISCUIT AND BOWSER. TOLERATES WELL. VAGINAL PACKING-1 KURLIX REMOVED WITH BROWN AND RED DISCHARGE NOTED. GIRARD DC'D WITH 190 ML OF CLEAR, GREEN URINE NOTED IN BAG. PT DENIES URGE TO VOID AT THIS TIME.
--- NOTE | 2020-07-11 10:30 | NUR ---
RT TO ROOM FOR UPDRAFT TREATMENT.
--- NOTE | 2020-07-11 10:50 | NUR ---
PT LYING TO RIGHT SIDE. EYES CLOSED. RESP NON-LABORED. PT NOT DISTURBED TO ALLOW FOR REST.
[2020-07-11 11:32] VITALS: BP 117/59
--- NOTE | 2020-07-11 11:36 | NUR ---
PT C/O H/A AND PAIN TO PERINEUM OF "7" ON 0-10 PAIN SCALE. PERCOCET 5/325 2 TABS GIVEN PO ORDERED. PT INSTRUCTED ON MED. VERBALIZES UNDERSTANDING.
--- NOTE | 2020-07-11 11:37 | NUR ---
VSS. PT SITS UP ON SIDE OF BED. C/O DIZZINESS. THIS NURSE AND LMCEARL RN AT BEDSIDE WITH PT.
--- NOTE | 2020-07-11 11:50 | NUR ---
PT STATES DESIRE TO STAND. PT STANDS WITH ASSISTANCE. PT AMBULATES TO BR WITH 2 ASSISTS. PT GAIT UNSTEADY AT TIMES. THIS NURSE AND ARIEL MAGAÑA WITH PT.
--- NOTE | 2020-07-11 12:06 | NUR ---
PT UNABLE TO VOID. PANTIES AND PAD ON. SMEAR OF OLD BLOOD NOTED ON PREVIOUS PAD. PT AMBULATES, UNSTEADY GAIT AT TIMES, X 2 ASSISTS BACK TO BED. O2 BACK ON AT 4 LITERS PER N/C. SCDS ON BLE. PUMP ON. PT OSEAS ACTIVITY WELL.
--- NOTE | 2020-07-11 12:33 | NUR ---
PT SITTING UP IN BED. CONSUMING LUNCH. DENIES C/O OR NEEDS.
--- NOTE | 2020-07-11 12:50 | NUR ---
DR MORIN VISITS WITH PT.
--- NOTE | 2020-07-11 14:21 | NUR ---
RADIOLOGY DEPT HERE TO OBTAIN CHEST X-RAY.
--- NOTE | 2020-07-11 15:18 | NUR ---
PT SITTING UP IN BED. WAKES UPON VERBAL STIMULATION. C/O H/A AND PAIN/PRESSURE TO RECTAL AREA OF "8" ON 0-10 PAIN SCALE. TORADOL 10 MG GIVEN PO ORDERED. PT INSTRUCTED ON MED. VERBALIZES UNDERSTANDING.
[2020-07-11 15:20] VITALS: BP 122/58
--- NOTE | 2020-07-11 15:30 | NUR ---
PT OOB AND AMB TO BR X 2 ASSISTS. PT WITH UNSTEADY GAIT. PT VOIDS SMALL, UNMEASURED AMOUNT OF BLOOD-TINGED URINEE-PT MISSED SPECIPAN. PERICARE DONE. PAD CHANGED WITH SMALL AMT OF SEROSANGUINOUS DISCHARGE NOTED. BED LINENS CHANGED. PT AMB BACK TO BED X 2 ASSISTS. OSEAS ACTIVITY WELL. SRUP X 2. CALL LIGHT IN REACH. SCDS ON BLE. PUMP ON.
--- NOTE | 2020-07-11 15:58 | NUR ---
PT PROVIDED ICE WATER AND ENCOURAGED TO CONSUME MUCH TOLERATED.
--- NOTE | 2020-07-11 16:03 | NUR ---
BREATH SOUNDS CLEAR EXCEPT TO RIGHT LOWER QUAD WITH EXPIRATORY CRACKLES. PT HAS NON-PRODUCTIVE COUGH. DENIES SHORTNESS OF BREATH.
--- NOTE | 2020-07-11 16:22 | NUR ---
DR PAYNE TO ROOM. VISITS WITH PT.
--- NOTE | 2020-07-11 17:00 | NUR ---
PT STATES HAS SLIGHT URGE TO VOID. PT OOB AND AMB TO BR X 1 ASSIST. GAIT IMPROVED.
--- NOTE | 2020-07-11 17:25 | NUR ---
PT UNABLE TO VOID. PERICARE DONE PER PT. SMALL AMT OF SEROSANGUINOUS DISCHARGE NOTED ON CHANGED PERIPAD. NEW PERIPAD IN PLACE. PT AMB BACK TO BED X 1 ASSIST. SCDS ON BLE. PUMP ON.
--- NOTE | 2020-07-11 17:30 | NUR ---
BLADDER SCAN X 2-330 ML AND 338 ML NOTED.
--- NOTE | 2020-07-11 17:55 | NUR ---
REGULAR DIET SERVED. PT DENIES NAUSEA.
--- NOTE | 2020-07-11 17:58 | NUR ---
SL FLUSHES EASILY WITH 10 ML NS. SITE RETAPED AND SECURED. ROCEPHIN 1 GRAM IVP UP AT THIS TIME. SITE CLEAR. PT INSTRUCTED ON MED. VERBALIZES UNDERSTANDING.
--- NOTE | 2020-07-11 18:01 | NUR ---
DR MORIN NOTIFIED OF PT UNABLE TO VOID, BLADDER SCAN VOLUMES. ORDER RECEIVED.
--- NOTE | 2020-07-11 18:06 | NUR ---
RESPIRATORY STAFF NOTIFIED OF CHANGES TO ORDERS.
--- NOTE | 2020-07-11 18:49 | NUR ---
IN/OUT CATH PERFORMED USING ASEPTIC TECHNIQUE. 350 ML OF CLEAR, GREEN URINE NOTED IN BAG. PT OSEAS WELL. PERICARE DONE. PERIPAD CHANGED WITH SMALL AMT OF SEROSANGUINOUS DRAINAGE NOTED. PANTIES ON. PT REPOSITIONS TO SEMI-CARRINGTON'S POSITION IN BED. PT PULLS 800 ON INCENTIVE SPIROMETER. PT COUGHS WITH NO SPUTUM COLLECTED.
--- NOTE | 2020-07-11 19:13 | NUR ---
PATIENT SITTING UP IN BED WATCHING TV. NASAL CANNULA NOTED TO BE AROUND HER NECK. NASAL CANNULA REPLACED AT THIS TIME.
--- NOTE | 2020-07-11 19:40 | NUR ---
RESPIRATORY THERAPIST AT BEDSIDE
--- NOTE | 2020-07-11 20:21 | NUR ---
OXYGEN TURNED UP TO 5% VIA NASAL CANNULA AT THIS TIME.
--- NOTE | 2020-07-11 20:27 | NUR ---
dr tali napoles
--- NOTE | 2020-07-11 20:29 | NUR ---
DR PAYNE CALLED BACK, INFORMED OF LOW OXYGEN SATURATION ALL DAY. ORDERS NOTED TO TITRATE TO 92% WITHHIGH FLOW NASAL CANNULA.
--- NOTE | 2020-07-11 20:36 | NUR ---
OXYGEN RATE CHANGED TO 6L/MIN
--- NOTE | 2020-07-11 20:54 | NUR ---
MEDICATIONS ADMINISTERED AT THIS TIME PER MD ORDERS, SEE EMAR.
--- NOTE | 2020-07-11 21:00 | NUR ---
PATIENT ASSISTED UP TO BATHROOM, VOIDED 30ML CLEAR URINE. PAD NOTED TO HAVE TWO SMALL QUARTER SIZED SPOTS. CLEAN PAD PLACED AND PATIENT BACK TO BED. SCD BOOTS ON WITH WORKING MACHINE, HOB ELEVATED 45DEGREES, O2 AT 8L/MIN VIA NASAL CANNULA. SPUTUM CULTURE COLLECTED AND SENT TO LAB.
--- NOTE | 2020-07-11 22:35 | NUR ---
PATIENT AMBULATED TO BATHROOM WITH ASSISTANCE. VOIDED 130ML BLUE TINGED URINE WITHOUT DIFFICULTY. CLEAN PERIPAD PLACED AND BACK TO BED. REPOSITIONED TO LEFT SIDE, PILLOWS PLACED FOR COMFORT. ICE, ICE WATER, JELLO AND COKE PROVIDED. SCD BOOTS PLACED TO BILATERAL LOWER EXTREMITIES WITH WORKING MACHINE. OXYGEN REMAINS IN PLACE AT 8L/MIN VIA HIGH FLOW NASAL CANNULA.
--- NOTE | 2020-07-11 22:38 | NUR ---
TRAZODONE 100MG PO ADMINISTERED PER MD ORDER AND PT REQUEST
--- NOTE | 2020-07-12 00:30 | NUR ---
PATIENT SLEEPING WITH EVEN RESPIRATIONS. NO DISTRESS NOTED. O2 CONTINUES ON 8L/MIN VIA HIGH FLOW NASAL CANNULA. WILL CONTINUE TO MONITOR
--- NOTE | 2020-07-12 01:51 | NUR ---
RN TO PT BEDSIDE, PT STATES SHE NEEDS TO USE THE BATHROOM TO VOID, PT ASSISTED TO BATHROOM BY RN, GAIT IS STEADY WITH PERIODIC PERIODS OF UNSTEADINESS. PT VOIDED 300ML IN URINE HAT, URINE IS GREEN TINGED, NO CLOTS SEEN. PT PROVIDED NEW BRIEFS AND PADS AT THIS TIME, PT'S BED PADS CHANGED. PT ASSISTED BACK TO BED BY RN, SCD'S PLACED BACK ON PT, PT'S O2 PLACED BACK ON WITH 8L OF O2 VIA HIGH FLOW NASAL CANNULA, PULSE OX PLACED BACK ON PT, PT PERFORMED INCENTIVE SPIROMETRY IN THE PRESENCE OF THE RN, PT ABLE TO INHALE BETWEEN 500ML AND 850ML DURING INHALATION. SPO2 CURRENTLY 93% ON 8L OF O2. PT DENIES ANY OTHER NEEDS AT THIS TIME, PT INSTRUCTED TO CALL OUT WHEN SHE NEEDS ASSISTANCE GETTING UP, PT VERBALIZES UNDERSTANDING. BED IN LOWEST POSITION, SIDE RAILS UPX2, CALL LIGHT IN REACH, NON-SKID SOCKS ON.
--- NOTE | 2020-07-12 03:55 | NUR ---
oxygen rate turned down to 6l/min at this time. pt sleeping with even respirations, no distress noted. will continue to monitor
--- NOTE | 2020-07-12 03:59 | NUR ---
RN CALLED TO PT ROOM, PT REQUESTS ASSISTANCE TO THE BATHROOM. PT GAIT IS STEADY, PT REPORTS THAT SHE FEELS URGES TO PEE AND URINE TRICKLES OUT, PT VOIDED 300ML IN URINE HAT, URINE IS CLEAR AND GREEN IN COLOR. PT PROVIDED NEW PADS. PT ASSISTED TO BED, PT TO LEFT LATERAL POSITION, SCD'S PLACED ON PT'S LEGS BILATERALLY, 6L O2 VIA NC PLACED ON PT, O2 SENSOR PLACED ON PT.
[2020-07-12 04:45] VITALS: BP 119/58
--- NOTE | 2020-07-12 05:43 | NUR ---
COMPUTER SALESPERSON RETAIL AT BEDSIDE
--- NOTE | 2020-07-12 05:50 | NUR ---
RN TO PT BEDSIDE, PT REQUESTS TO GO TO BATHROOM, RN ASSISTED PT TO BATHROOM, GAIT IS STEADY, WITH PERIODS OF UNSTEADINESS. PT VOIDED 250ML IN URINE HAT, CLEAR GREEN COLOR. PT ASSISTED TO BED AT THIS TIME, LAB IN ROOM TO DRAW LABS. BED IN LOWEST POSITION, SIDE RAILS UPX2, CALL LIGHT IN REACH.
[2020-07-12 07:18] LABS: BASOPHILS 0 % (0-2); EOSINOPHILS 0.1 % (0-7); HEMATOCRIT 35.6 % (36.0-48.0); HEMOGLOBIN 10.5 g/dL (12-16); IMMATURE GRANULOCYTES 0.2 % (0-5); LYMPHOCYTES 11.6 % (15-50); MCHC 29.5 g/dL (31.0-37.0); MCV 94.9 fL (80.0-100.0); MEAN PLATELET VOLUME 9.4 fL (7.4-10.4); MONOCYTES 3.6 % (2-11); NEUTROPHILS 84.5 % (40-80); RBC 3.75 10x6/uL (4.00-5.40); RDW 13.8 % (11.5-14.5); WBC 9.3 10x3/uL (4.8-10.8)
--- NOTE | 2020-07-12 07:30 | NUR ---
UP TO VOID WITH ASSISTANCE GIVEN. PT ABLE TO VOID 100ML, COMPLAINS OF RECTAL PAIN AFTER VOID WHICH SHE SAYS DR MORIN TOLD HER IS EXCEPTED FOR TYPE OF PROCEDURE SHE HAD DONE. SHE IS ABLE TO WALK BACK TO BED AND POSITION SELF FOR COMFORT ALL WITH ASSISTANCE FROM RN. AM ASSESSMENT COMPLETED WITH MEDS GIVEN SCANNED TO EMAR. XRAY AT BEDSIDE FOR CHEST XRAY ORDERED.
[2020-07-12 07:35] LABS: PLATELET COUNT 141 10x3/uL (130-400)
[2020-07-12 07:55] LABS: ANION GAP 7.8 mmol/L (8-16); CARBON DIOXIDE 32.4 mmol/L (21.0-32.0); CREATININE - SERUM 0.9 mg/dL (0.6-1.3); PHOSPHOROUS 2.6 mg/dL (2.5-4.9); POTASSIUM - SERUM 4.2 mmol/L (3.5-5.1)
[2020-07-12 08:09] VITALS: BP 121/56
--- NOTE | 2020-07-12 08:20 | NUR ---
PHYS THEREPY AT BEDSIDE FOR EVALUATION OF CARE FOR INPATIENT REHAB.
--- NOTE | 2020-07-12 09:08 | NUR ---
MEDS GIVEN SCANNED TO EMAR. PT UP TO VOID, ENCOURAGED HER TO SIT ON SIDE OF BED BEFORE STANDING, ASSISTANCE BY THIS RN. SHE IS ABLE TO VOID 50ML, NEW MESH BRIEFS PROVIDED REQUESTED. PT BACK TO BED AND SITS ON SIDE OF BED TO TAKE AM MEDS. POSITIONED SELF FOR COMFORT IN BED WITH HEAD OF BED ELEVATED AND SCD PUT BACK ON BILAT. PT HAS VISITOR AT BEDSIDE AT THIS TIME, SIDE RAILS UP X 2 WITH CALL LIGHT IN REACH.
--- NOTE | 2020-07-12 10:27 | NUR ---
Rehab Note- Acute Inpatient Rehab prescreen order received. The patient continues to have an acute work up and is currently on 6L/High FLow oxygen at this time. Will follow for possible acute inpatient rehab stay prior to being discharged home. Thank you for this referral! Ailyn Modi RN Clinical Liaison, [facility] Rehab
--- NOTE | 2020-07-12 11:00 | NUR ---
PT VISITING WITH CLOSE FRIEND AND DENIES NEEDS AT THIS TIME. CALL LIGHT IN REACH.
--- NOTE | 2020-07-12 13:03 | NUR ---
ECHO COMPLETED. PT UP TO VOID WITH RN AT HER SIDE. VOIDS 300ML WITHOUT COMPLAINT. PROVIDED WITH WARM WET WASH CLOTH FOR EVITA CARE PER SELF. BACK TO BED AND POSITIONED WITH HEAD OF BED RAISED SO THAT SHE IS ABLE TO EAT LUNCH. CALL LIGHT IN REACH WITH SIDE RAILS UP X 2.
--- NOTE | 2020-07-12 15:30 | NUR ---
DR MORENO TALKS WITH CASE MANAGEMENT ABOUT TRANSFER TO REHAB, PER DR MORENO HE DOES NOT FEEL LIKE PT IS READY AND ADVISES AGAINST THIS TRANSFER AT THIS TIME.
--- NOTE | 2020-07-12 15:53 | MORECARE ---
CASE MANAGEMENT DISCHARGE SUMMARY PATIENT: CASEY ENGLAND UNIT: [id number] ADM DATE: 07/11/20 AGE: 74 : 46 SEX: F ROOM/BED: D.[facility]3 AUTHOR: ISABELLE ELDRIDGE PHYSICIAN: REFERRING PHYSICIAN: MARY MORIN MD DATE OF SERVICE: 07/12/20 Discharge Plan Patient Name: CASEY ENGLAND Facility: [facility]:[place] : 1945 Planned Disposition: Inpatient Rehab Anticipated Discharge Date: 07/12/20 Discharge Date: Expected LOS: 1 Initial Reviewer: [email or web address] Initial Review Date: 07/12/2020 Generated: 07/12/20 4:52 pm Patient Name: CASEY ENGLAND Page [phone] at 1553 All edits/amendments must be made on the electronic document DICTATION DATE: 07/12/20 155 RAILROAD ENGINEER: KEVON 07/12/20 1552 RPT#: [id number] DC DATE: STATUS: ADM IN [facility] [address] [place] [address] END OF REPORT
--- NOTE | 2020-07-12 16:05 | NUR ---
CALLED TO ROOM, PT UP TO VOID WITH ASSISTANCE FROM RN. VOIDS 100ML, URINE IS STILL LIGHT BLUE IN COLOR BUT CLEAR. OFFERED TO BRING CHAIR TO BEDSIDE FOR HER TO SIT IN AND SHE IS AGREEABLE. PRIOR TO O2 BEING RECONNECT O2SAT IS 91%, STARTED O2 AT 2L VIA NC, PT SAT IS 93%. CALL LIGHT AND PHONE IN REACH.
--- NOTE | 2020-07-12 16:17 | MORECARE ---
CASE MANAGEMENT DISCHARGE SUMMARY PATIENT: CASEY ENGLAND UNIT: [id number] ADM DATE: 07/11/20 AGE: 74 : 46 SEX: F ROOM/BED: D.1273 AUTHOR: JAZMYN,DOC PHYSICIAN: REFERRING PHYSICIAN: TONEY MORIN MD DATE OF SERVICE: 07/12/20 Discharge Plan Patient Name: CASEY ENGLAND Facility: [facility]:[place] : 1945 Planned Disposition: Inpatient Rehab Anticipated Discharge Date: 07/12/20 Discharge Date: Expected LOS: 1 Initial Reviewer: [email or web address] Initial Review Date: 07/12/2020 Generated: 07/12/20 5:16 pm Comments DCP- Discharge Planning Updated by [email or web address]: Priscilla Harvey on 07/12/20 3:[address] Patient Name: CASEY ENGLAND Admission Status: Elective Accout number: [id number] Admission Date: 07-11-2020 : 1945 Admission Diagnosis: Attending: Toney Morin Current LOS: 1 Anticipated DC Date: 07-12-2020 Planned Disposition: Inpatient Rehab Primary Insurance: MEDICARE A & B Discharge Planning Comments: CM met with patient to discuss discharge planning / needs. Patient states she lives home alone. States home environment is safe. Was independent prior to hospitalization. States she plans to discharge to rehab. Signed TINO for [facility] rehab. CM explained and patient signed DC IMM. Denies any other discharge planning needs at this time. CM will continue to follow and assist as needed with discharge planning / needs. Sofa Back Upholsterer: Priscilla Harvey DCPIA - Discharge Planning Initial Assessment Updated by [email or web address]: Priscilla Harvey on 07/12/20 4:14 pm * Is the patient Alert and Oriented? Yes * How many steps to enter\exit or inside your home? * PCP [facility] * Pharmacy [facility] * Preadmission Environment Home Alone * ADLs Independent * Equipment Elevated [place] Seat Grab Bars Rolling Walker Shower Chair * Other Equipment Abhilash Rollator, Adult Rollator, * List name and contact numbers for known caregivers / representatives who currently or will assist patient after discharge: Inna João, did not know her phone number * Verbal permission to speak to the caregivers and representatives has been obtained from the patient. No * Community resources currently utilized None * Additional services required to return to the preadmission environment? Yes * Can the patient safely return to the preadmission environment? Yes * Has this patient been hospitalized within the prior 30 days at any hospital? No Coverage Notice Reviewer: [id number] Girish Harvey Notice Issued Date-Time: 07/12/2020 15:00 Notice Type: IM Discharge Notice Notice Delivered To: Patient Relationship to Patient: Self Managed Care Manager Name: Delivery Method: HAND - Hand Delivered Jocelyn Days: Prior Verbal Notification: Recipient Understood Notice: Yes Recipient Signature: Yes Med Rec Note Co-signed by Attending: Coverage Notice Comment: Last DP export: 07/12/20 2:53 p Patient Name: CASEY ENGLAND Page [phone] at 1617 All edits/amendments must be made on the electronic document DICTATION DATE: 07/12/201616 UNIT LEADER: KEVON 07/12/201616 RPT#: [id number] DC DATE: STATUS: ADM IN [facility] [address] [place] [address] END OF REPORT
--- NOTE | 2020-07-12 17:00 | NUR ---
ATTEMPT TO FLUSH SALINE LOCK PRIOR TO SOLU-MEDROL, SALINE LOCK NOTED TO BE INFILTRATED. PT STATES UNDERSTANDING THAT IV WOULD NEED TO BE RESTARTED.
--- NOTE | 2020-07-12 17:40 | NUR ---
DR MORIN ON UNIT, VERIFIED WITH MD THAT ROCEPHIN AND SOLU-MEDROL WERE TO BE CONTINUED.
--- NOTE | 2020-07-12 18:00 | NUR ---
PT TALKING ON PHONE TO HER DAUGHTER, WILL CALL OUT WHEN SHE IS FINISHED.
[2020-07-12 19:24] VITALS: BP 111/56
--- NOTE | 2020-07-12 19:24 | NUR ---
RN TO PT BEDSIDE FOR ROUNDING, PT REQUESTS TO GO TO BATHROOM, GAIT IS STEADY WITH PERIODS OF LOSS OF BALANCE. PT VOIDED 150ML IN UINE HAT, URINE COLOR IS CLEAR AND LIGHT GREEN. PT STATES SHE HAS 1-2/10 PAIN TO HER RECTUM, PT DENIES ANY NEEDS CURRENTLY. IV START ATTEMPTED X2 AT THIS TIME, UNABLE TO OBTAIN IV. BED IN LOWEST POSITION, SIDE RAILS UPX2, CALL LIGHT IN REACH.
--- NOTE | 2020-07-12 22:36 | NUR ---
RN TO PT BEDSIDE, O2 INCREASED TO 3L AT THIS TIME.
--- NOTE | 2020-07-13 01:14 | NUR ---
RN TO PT BEDSIDE, PT REQUESTS ASSISTANCE TO BATHROOM, PT ASSISTED TO BATHROOM, PT VOIDED 300ML IN URINE HAT, URINE LIGHT GREEN IN COLOR. PT ASSISTED BACK INTO BED, O2 PLACED BACK ON PT AT 3L VIA NC, PULSE OX PLACED BACK ON PT. BED IN LOWEST POSITION, SIDE RAILS UPX2, CALL LIGHT IN REACH.
--- NOTE | 2020-07-13 02:46 | NUR ---
EVENT MGR TO PT BEDSIDE TO START IV USING VEIN FINDER, SUCCESSFUL PLACEMENT OF 20G IV TO LEFT FA.
--- NOTE | 2020-07-13 02:53 | NUR ---
PT REQUEST TO GO TO BATHROOM AT THIS TIME. 200ML U.O. TO URINE HAT, LIGHT GREEN IN COLOR, PT ASSISTED BACK TO BED AT THIS TIME.
[2020-07-13 02:55] VITALS: BP 135/53
--- NOTE | 2020-07-13 03:35 | NUR ---
RN TO PT BEDSIDE AT THIS TIME TO REDUCE O2, O2 REDUCED TO 2L VIA NC AT THIS TIME, SPO2 IS 96% AT THIS TIME.
--- NOTE | 2020-07-13 04:41 | NUR ---
RN TO PT BEDSIDE TO TITRATE O2 DOWN, O2 NOW ON 1L VIA NC, PT SPO2 95-96%.
--- NOTE | 2020-07-13 06:14 | NUR ---
RN TO PT BEDSIDE, PT REQUESTS ASSISTANCE TO BATHROOM, PT ASSISTED TO BATHROOM, PT VOIDED 700ML IN URINE HAT, URINE LIGHT GREEN IN COLOR. PT ASSISTED BACK TO BED, PULSE OX APPLIED, O2 AT 1L APPLIED VIA NC. PT DENIES ANY OTHER NEEDS. BED IN LOWEST POSITION, SIDE RAILS UPX2, CALL LIGHT IN REACH.
--- NOTE | 2020-07-13 06:31 | NUR ---
PT O2 TITRATED UP TO 2L AT THIS TIME
[2020-07-13 07:30] LABS: BASOPHILS 0 % (0-2); EOSINOPHILS 0 % (0-7); HEMATOCRIT 34.2 % (36.0-48.0); HEMOGLOBIN 10.4 g/dL (12-16); IMMATURE GRANULOCYTES 0.3 % (0-5); LYMPHOCYTES 12.9 % (15-50); MCH 28.5 pg (26.0-34.0); MCHC 30.4 g/dL (31.0-37.0); MCV 93.7 fL (80.0-100.0); MEAN PLATELET VOLUME 9.4 fL (7.4-10.4); MONOCYTES 2.7 % (2-11); NEUTROPHILS 84.1 % (40-80); PLATELET COUNT 148 10x3/uL (130-400); RBC 3.65 10x6/uL (4.00-5.40); RDW 13.7 % (11.5-14.5); WBC 7.8 10x3/uL (4.8-10.8)
[2020-07-13 07:44] LABS: ANION GAP 5.7 mmol/L (8-16); CALCIUM 8.5 mg/dL (8.5-10.1); MAGNESIUM - SERUM 2.1 mg/dL (1.8-2.4); PHOSPHOROUS 2.5 mg/dL (2.5-4.9); POTASSIUM - SERUM 3.7 mmol/L (3.5-5.1)
--- NOTE | 2020-07-13 08:30 | NUR ---
UPON ENTERING ROOM PT IS SITTING UP ON SIDE OF BED, JUST STARTING TO EAT BREAKFAST. STATES SHE WAS ABLE TO SIT UP BY HERSELF, DENIES DIZZINESS. KEO DOTSON GIVEN SCHEDULED AND EXPLAINED TO PT THAT PHARMACY WAS IN PROCESS OF GETTING HER OTHER AM MEDS AND THEY WOULD BE BROUGHT IN SOON RECIEVED. PT ASK ABOUT SHOWERING THIS AM AND REASSURED HER THAT RN WOULD BE ABLE TO ASSIST HER AND TO CALL WHEN SHE FINISHED HER BREAKFAST.
--- NOTE | 2020-07-13 09:39 | NUR ---
ATTEMPT TO CALL CASE MANAGEMENT ABOUT INPATIENT REHAB TRANSFER, MESSAGE LEFT AT EST [phone]
--- NOTE | 2020-07-13 10:40 | NUR ---
PT UP TO BATHROOM SHE IS ABLE TO GET UP BY HERSELF AND IS ABLE TO WALK TO BATHROOM WITH RN AT HER SIDE. VOIDS 200ML CLEAR BLUEISH URINE WITHOUT COMPLAINT. RT AT BEDSIDE FOR TREATMENT.
--- NOTE | 2020-07-13 10:50 | NUR ---
SHOWER SEAT PLACED IN SHOWER, PT UP TO SHOWER WITH LITTLE ASSISTANCE. THIS RN REMAINS IN ROOM THROUGHOUT HER SHOWER. BED LINENS CHANGED WHILE PT SHOWERS.
--- NOTE | 2020-07-13 13:30 | NUR ---
AMB IN HALLS WITH PHYSICAL THERAPY. O2 SAT REMAINS GREATER THAN 92% ON 1L NC. NO LABORED BREATHING NOTED AFTER WALKING IN HALLS X 2. LARGE ICE WATER REQUESTED.
--- NOTE | 2020-07-13 14:00 | NUR ---
pt resting on left side with eyes closed and resp even. O2 sat 95% on 1L, no signs of distress noted. pt left undisturbed.
--- NOTE | 2020-07-13 17:00 | NUR ---
DR MORENO ON UNIT AND AT BEDSIDE, EXPLAINS TO PT THAT SHE WILL STAY ANOTHER NIGHT ON L/D AND AFTER CTA IN THE AM WILL REASSESS. ORDERS RECEIVED THAT ARE TO BEGING AT 1900 DUE TO PT ALLERGY TO IODINE. SEE EMAR FOR DOSE AND TIMES.
--- NOTE | 2020-07-13 18:15 | NUR ---
CALLED TO ROOM, SHE IS ABLE TO GET SELF UP FROM BED AND AMB TO BATHROOM WITH NO NEED OF ASSISTANCE. DIETARY CALLED ABOUT PT REQUESTED GRILL CHEESE. RATES PAIN/DISCOMFORT AT 3/10. [facility] PER SELF AND AMB BACK TO BEDSIDE CHAIR. o2 SAT AT 94% WITH NO O2 IN PLACE. ALLOWED TO EAT HER DINNER AT THIS TIME. CALL LIGHT IN REACH.
[2020-07-13 20:18] VITALS: BP 115/56
--- NOTE | 2020-07-13 20:18 | NUR ---
RN TO PT BEDSIDE FOR ROUNDING, PT STATES SHE NEEDS TO USE THE BATHROOM. PT ASSISTED TO THE BATHROOM AT THIS TIME. PT VOIDED INTO TOILET, UNMEASURED AMOUNT. PT ASSISTED BACK TO BED AT THIS TIME, STATES PAIN IS 6/10 ON PAIN SCALE TO RECTUM "BURNING" SENSATION. PT IS NOT ON O2 AT THIS TIME, PT'S SPO2 IS 95% AT THIS TIME ON ROOM AIR, VSS. PT DENIES ANY NEEDS AT THIS TIME, BED IN LOWEST POSITION, SIDE RAILS UPX2, CALL LIGHT IN REACH.
--- NOTE | 2020-07-13 21:58 | NUR ---
PHARMACY DELIVERED PT PM MEDICATIONS AT THIS TIME.
--- NOTE | 2020-07-13 23:36 | NUR ---
RN TO PT BEDSIDE, PT SLEEPING AT THIS TIME, PULSE OX ADJUSTED ON HER FINGER AND MOVED TO OTHER FINGER STILL READING BETWEEN 87-89%, PT PLACED ON 2L O2 VIA HIGH FLOW NC AT THIS TIME.
--- NOTE | 2020-07-14 00:25 | NUR ---
PT CURRENTLY SLEEPING AT THIS TIME.
--- NOTE | 2020-07-14 00:26 | NUR ---
O2 TITRATED DOWN TO 1L VIA NC, SPO2 97-98%
--- NOTE | 2020-07-14 04:31 | NUR ---
RN TO PT BEDSIDE AT THIS TIME, PT REQUESTS FOR STANDBY ASSISTANCE TO THE BATHROOM, PT AMBULATED TO BATHROOM, VOIDED UNMEASURED AMOUNT, PT WAS ASSISTED BACK TO BED,PULSE OX REAPPLIED.
[2020-07-14 07:25] VITALS: BP 154/70
--- NOTE | 2020-07-14 07:25 | NUR ---
SHIFT ASSESSMENT COMPLETE, VS OBTAINED. SYSTOLIC BP NOTED TO BE SLIGHTLY ELEVATED. PT COUGHING, STATES IT IS ONLY OCCASIONLY PRODUCTIVE WITH BLOOD FROM THROAT IRRITATION, STATES IT'S MOSTLY A DRY COUGH. PT REPORTS HER CHEST MUSCLES HURTING FROM COUGHING. POC DISCUSSED WITH PT WELL PRE-PROCEDURE MEDS GIVEN PER DR MORENO'S ORDER TO FOLLOW CONTRAST ALLERGY PROTOCOL. RATIONALE EXPLAINED TO PT AND THAT SHE MUST REMAIN NPO FOR PROCEDURE OTHER THAN SIPS OF WATER WITH MEDS. UNDERSTANDING VERBALIZED. PT OXYGEN ON 1L VIA NC, SAT 96%. LEFT FOREARM PIV FLUSHED TO DETERMINE PATENCY, FLUSHES WELL. PT DENIES NEEDS AT THIS TIME. SRUx2, CL IN REACH. SEE FLOWSHEET FOR FULL SHIFT ASSESSMENT.
--- NOTE | 2020-07-14 08:19 | EC ---
PATIENT:CASEY ENGLAND DATE OF SERVICE: 07/11/20 SEX: F MEDICAL RECORD: [id number] DATE OF : [birth year] LOCATION:[id number] AGE OF PATIENT: 74 ADMISSION DATE: 07/11/20 REFERRING PHYSICIAN: INTERPRETING PHYSICIAN: SCOTT CHUN MD ECHOCARDIOGRAM REPORT ECHO CHARGES 4 ECHO COMPLETE Date: 07/12/20 CLINICAL DIAGNOSIS: SOB ECHOCARDIOGRAPHIC MEASUREMENTS (adult normal given) AC root (d.<3.7cm) 2.6 cm LV Septum d (<1.2 cm> 0.9 cm Valve Excursion 1.4 cm LV Septum (systole) 1.5 cm Left Atria (s.<4.0cm> 4.2 cm LVPW d(<1.2cm) 1.0 cm RV (d.<2.3cm) 2.1 cm LVPW (sytole) 1.1 cm LV diastole(<5.6CM) 5.1 cm MV E-F(>70mm/sec) cm LV systole 3.7 cm LVOT Diameter 1.7 cm MV exc.(>10mm) cm Est.ejection fraction (50-75%) % DOPPLER: LVIT cm/sec A 116 cm/sec E 138 cm/sec LA cm/sec RVSP 36.8 mmHg LVOT 113 cm/sec AOP1/2T m/s Asc. Ao 185 cm/sec RVOT 75 cm/sec RA cm/sec PA 83 cm/sec AV Gradient Peak 13.7 mmHg AV Mean 8.0 mmHg AV Area 1.6 cm MV Gradient Peak 10.5 mmHg MV Mean 4.6 mmHg MV Area cm COMMENTS: Guest Service Agent: Ady MCDANIELS Senior Marketing Engineer: 3 Dr. Alaniz TAPE# PACS Pericardial Effusion N DATE OF SERVICE: Adequate 2D, color flow imaging, spectral Doppler, and M-Mode. No LVH. LV internal dimensions are normal. Wall motion is normal. EF is greater than or equal to 55%. Aortic valve is tricuspid. No evidence of stenosis by Doppler interrogation. Left atrium minimally dilated at 4.2 cm. Mitral valve shows no prolapse. Trace MR. Right-sided chambers are grossly normal. Trace TR. ECHOCARDIOGRAM REPORT [id number] CASEY ENGLAND TRANSINT:[id number] Voice Confirmation ID: [id number] DOCUMENT ID: [id number] SCOTT CHUN MD at 0819 CC: [id number] DICTATION DATE: 07/13/20 1313 CLAIMS COUNSEL: 07/13/20 1401 ADM IN [place] [id number] [place] [id number]
--- NOTE | 2020-07-14 08:20 | NUR ---
RADIOLOGY PHONED TO NOTIFY PT WAS GIVEN PRE-PROCEDURE MEDS [address] MORENO'S ORDER AND SHE IS READY FOR CTA NOW. STATES WILL NOTIFY CT STAFF WHEN BACK ON FLOOR.
--- NOTE | 2020-07-14 08:36 | NUR ---
RESP THERAPY TO ROOM AT THIS TIME FOR ORDERED THERAPIES.
--- NOTE | 2020-07-14 08:50 | NUR ---
PT CALLS OUT UNDER SEAL OPERATOR LIGHT STATING SHE NEEDS TO GET UP TO BATHROOM. THIS RN TO ROOM. PT HAS REMOVED OXYGEN AND PULSE OX, GETS UP OOB WITHOUT ASSIST THIS RN ENTERS ROOM AND AMBULATES TO BATHROOM WITHOUT ASSIST. STEADY GAIT. PT STATES SHE SOMETIMES GETS "WINDED" ON THE WAY BACK TO BED, BUT IS OK FOR NOW. DENIES FEELING DIZZY OR SOB. PT WANTS TIME SITTING ON TOILET. THIS RN REMAINS IN ROOM WITH PT FOR ASSIST IF NEEDED PER FALL PRECAUTIONS.
--- NOTE | 2020-07-14 09:06 | NUR ---
PT FINISHES IN BR AND AMBULATES BACK TO BED WITHOUT ASSIST, STEADY GAIT. PT STATES SHE FEELS OK, NOT DIZZY OR SOB. O2 SATS NOTED TO B 93%, 1L REPLACED VIA NC AND SATS BEGIN TO RISE 94%-95%. 0900 MEDS GIVEN SCHEDULED. PT TAKES WITH SMALL SIPS OF WATER. LOVENOX ADMIN SCHEDULED WELL. PT DENIES NEEDS AT THIS TIME, QUESTIONS WHEN CT WILL BE HERE BECAUSE SHE IS READY TO EAT HER BREAKFAST. WILL PHONE RADIOLOGY DEPT AGAIN. PT LYING IN BED, SUPINE WITH LEFT TILT. SRUx2, CL IN REACH.
--- NOTE | 2020-07-14 09:20 | NUR ---
RADIOLOGY DEPT PHONED AGAIN, INFORMED STILL WAITING ON CT AND THAT PT HAS BEEN PREMEDICATED ORDERED 2 HOURS AGO AND IS STILL NPO UNTIL AFTER PROCEDURE, WAITING TO EAT HER BREAKFAST. STATES CT HAS BEEN BUSY THIS AM, WILL FIND A CT STAFF MEMBER AND NOTIFY THEM.
--- NOTE | 2020-07-14 09:40 | NUR ---
CT STAFF TO ROOM, TRANSFERS PT VIA W/C TO CT FOR ORDERED PROCEDURE.
--- NOTE | 2020-07-14 09:50 | NUR ---
PHYSICAL THERAPY TO ROOM TO WALK WITH PT. INFORMED PT UPSTAIRS FOR CT AT THIS TIME.
--- NOTE | 2020-07-14 10:05 | NUR ---
PT BACK TO ROOM FOR CT, PT TRANSFERRED BACK TO BED. PULSE OX 93%, OXYGEN INCREASED TO 2L. PT SITTING UP IN BED, EATING BREAKFAST. POC DISCUSSED. PT DENIES ANY NEEDS AT THIS TIME. WILL CONT TO MONITOR.
--- NOTE | 2020-07-14 10:27 | NUR ---
LETTER CARRIER TO PT'S ROOM AT THIS TIME.
--- NOTE | 2020-07-14 11:06 | NUR ---
PT CALLS OUT BLUNGER LOADER LIGHT STATING SHE NEEDS TO GET UP TO BR. THIS RN TO ROOM. PT GETS SELF UP TO BR TO VOID, AMBULATES WITHOUT ASSIST. PT STATES SHE STRAINED A LITTLE THINKING SHE WAS GOING TO HAVE A BM BUT DIDN'T. STATES SHE NOW HAS VAGINAL SPOTTING. SCANT AMOUNT NOTED TO TOILET PAPER. PT AMBULATES BACK TO BED WITHOUT ASSIST. O2 SATS NOTED TO BE 93%-94% ON ROOM AIR. PT PLACED ON 1L O2 VIA NC. VS OBTAINED AND NOTED TO BE STABLE. FRESH ICE WATER AND SPRITE GIVEN PER REQUEST. PT DENIES FURTHER NEEDS. LIGHTS IN ROOM DIMMED FOR REST. SRUx2, CL IN REACH.
[2020-07-14 11:08] VITALS: BP 119/58
--- NOTE | 2020-07-14 11:30 | NUR ---
PHYSICAL THERAPY HERE WALKING IN HALLS PT WITH WALKER AT THIS TIME.
--- NOTE | 2020-07-14 11:45 | NUR ---
DR MORIN PHONES UNIT FOR UDPATE ON PT. STATES SHE HAS BEEN CLEARED FROM HIS STANDPOINT. DISCUSSED PT REQUEST FOR STOOL SOFTENER AFER STRAINING THIS MORNING, ORDER RECEIVED FOR 100MG COLACE PO BID AND DULCOLAX SUPPOSITORY BID PRN. ORDER ALSO RECEIVED FOR PT TO HAVE WALKER ASSISTIVE DEVICE. WILL PROCEED ORDERED.
--- NOTE | 2020-07-14 11:53 | NUR ---
RESP THERAPIST ON UNIT, STATES HE SPOKE WITH DR MORENO REGARDING CTA OF CHEST DONE THIS AM AND THAT DR MORENO SAID HE IS AWARE AND HAD READ REPORT. WILL AWAIT DR MORENO TO ROUND FOR UPDATED PLAN FOR PT.
--- NOTE | 2020-07-14 12:57 | NUR ---
PT CALLS OUT COFFEE BAR ATTENDANT LIGHT STATING SHE NEEDS TO GET UP TO BR. RN TO ROOM. PT UP TO BR WITHOUT ASSIST. PT VOIDING, REQUESTS SUPPOSITORY ORDERED FROM DR MORIN. THIS RN BACK TO ROOM. PT STATES SHE JUST HAD A BOWEL MOVEMENT AND NO LONGER NEEDS SUPPOSITORY. PT AGREEABLE TO COLACE STOOL SOFTENER FOR EASE OF HAVING BM NEXT TIME. ADMIN ORDERED PO. PT BACK TO BED WITHOUT ASSIST. OXYGEN AND PULSE OX REAPPLIED. PT DENIES FURTHER NEEDS AT THIS TIME. SRUx2, CL IN REACH.
[2020-07-14 13:13] VITALS: Ht 154.9 cm; Wt 104.3 kg
--- NOTE | 2020-07-14 14:15 | NUR ---
PT INCINERATOR OPERATOR LIGHT, STATES SHE NEEDS TO GET UP TO BR. PT TO BR WITH WALKER, NO ASSIST NEEDED. PT STATES SHE WANTS TO SIT ON TOILET FOR A WHILE. STATES SHE MAY HAVE BOWEL MOVEMENT, BUT KNOWS NOT TO STRAIN. PT INSTRUCTED TO PULL CORD NEXT TO HER IF IN NEED OF ASSIST. UNDERSTANDING VERBALIZED. SRUx2, CL IN REACH.
--- NOTE | 2020-07-14 14:40 | NUR ---
PT CALLS OUT ON BATHROOM CALL LIGHT, THIS RN TO ROOM. PT STANDING AND BRACING SELF ON WALKER, STATES SHE WANTED TO REPORT THAT SHE HAD A BLACK TARRY STOOL, FOLLOWED BY A BLOODY STOOL. DR MORIN ON UNIT, NOTIFIED OF PT REPORTS BUT STOOL ALREADY FLUSHED. STATES HE WILL LIKELY ORDER A GI CONSULT LATER. NO NEW ORDERS RECEIVED AT THIS TIME.
--- NOTE | 2020-07-14 14:50 | NUR ---
DR MORIN TO ROOM ROUNDING ON PT, APPROVES PT TRANSFER TO REHAB.
--- NOTE | 2020-07-14 15:15 | NUR ---
DR MORENO ON UNIT ROUNDING ON PT. ORDER RECEIVED TO DISCHARGE PT TO REHAB, CONSULT HIM ONCE SHE IS IN REHAB, AND CONTINUE ALL RESPIRATORY THERAPY MEDS CURRENTLY ORDERED. WILL PROCEED ORDERED.
--- NOTE | 2020-07-14 16:45 | NUR ---
THIS RN TO ROOM TO ROOM FOR VICE PRESIDENT CLIENT SERVICES. PT STATES SHE IS HAVING A PANIC ATTACK AND NEEDS HER ANXIETY MED. DR MORIN ON UNIT, INFORMED OF PT REPORT OF PANIC ATTACK AND MED REQUEST. ORDER RECEIVED FOR 1MG XANAX PO x1 DOSE NOW. STATES WILL UPDATE PT MED RECONCILLIATION FOR D/C TO REHAB. THIS RN TO ROOM, MEDS ADMIN ORDERED FOR ANXIETY AND SCHEDULED, SEE EMAR. FANS DELIVERS DINNER TRAY. POC DISCUSSED, WILL TRANSFER TO REHAB WHEN ANTIBIOTIC FINISHED INFUSING. UNDERSTANDING VERBALIZED.
--- NOTE | 2020-07-14 17:30 | NUR ---
PT GIVEN D/C INSTRUCTIONS WELL FOLLOW UP KAMAR WITH DR MORIN. PT VERBALIZES UNDERSTANDING AND DENIES QUESTIONS. PT SIGNS CHART COPIES.
--- NOTE | 2020-07-14 17:45 | NUR ---
PT DISCHARGED TO REHAB PER ORDER, PT TRANSFERRED VIA W/C TO ROOM 1115. PHONE REPORT CALLED TO ARIEL GUTIERREZ ON REHAB PRIOR TO MOVING PT TO REHAB UNIT. PT OXYGEN CONNECTED ORDERED, DINNER TRAY SET UP, PT ORIENTED TO NEW ROOM AND CALL LIGHT. Stephan2, CL IN REACH.
[2020-07-14] MEDS ORDERED: TYLENOL W/CODEI1 TAB PO (18:34)
[2020-07-14] MEDS ORDERED: KLONOPIN0.5 MG PO (18:35)
[2020-07-14] MEDS ORDERED: LAMICTAL200 M1 PO (18:35)
[2020-07-14] MEDS ORDERED: LEXAPRO20 MG PO (18:36)
[2020-07-14] MEDS ORDERED: HYDROCODON-ACE1 EA10 PO (18:36)
[2020-07-14] MEDS ORDERED: REGLAN5 MG PO (18:37)
[2020-07-14] MEDS ORDERED: TOPROL XL25 MG PO (18:38)
[2020-07-14] MEDS ORDERED: FLUTICASONE PRO16 GM NASAL (18:47)
[2020-07-14] MEDS ORDERED: PULMICORT0.5 MG/21 INH (18:48)
[2020-07-14] MEDS ORDERED: SINGULAIR10 MG PO (18:48)
[2020-07-14] MEDS ORDERED: PERFOROMIS20 MCG/21 INH (18:48)
[2020-07-14] MEDS ORDERED: ALBUTEROL2.5 MG/3 M INH ×2 (18:50→18:51)
--- NOTE | 2020-07-14 18:50 | NUR ---
HOME MED REC COMPLETED AND FINALIZED WITH DR MORIN ON UNIT. PRINTED COPIES OF D/C INSTRUCTIONS AND HOME MED REC PROVIDED TO ARIEL GUTIERREZ ON REHAB.
[2020-07-15 04:08] LABS: IMMUNOGLOBULIN E 129 IU/mL (6-495)
--- NOTE | 2020-07-17 09:28 | MORECARE ---
CASE MANAGEMENT DISCHARGE SUMMARY PATIENT: CASEY ENGLAND UNIT: [id number] ADM DATE: 07/11/20 AGE: 74 : 46 SEX: F ROOM/BED: D.1273 AUTHOR: JAZMYN,DOC PHYSICIAN: REFERRING PHYSICIAN: TONEY MORIN MD DATE OF SERVICE: 07/17/20 Discharge Plan Patient Name: CASEY ENGLAND Facility: [facility]:[place] : 1945 Planned Disposition: Inpatient Rehab Anticipated Discharge Date: 07/12/20 Discharge Date: 07/14/2020 Expected LOS: 1 Initial Reviewer: [email or web address] Initial Review Date: 07/12/2020 Generated: 07/17/20 10:27 am Comments DCP- Discharge Planning Updated by [email or web address]: Priscilla Harvey on 07/12/20 3:[address] Patient Name: CASEY ENGLAND Admission Status: Elective Accout number: [id number] Admission Date: 07-11-2020 : 1945 Admission Diagnosis: Attending: Toney Morin Current LOS: 1 Anticipated DC Date: 07-12-2020 Planned Disposition: Inpatient Rehab Primary Insurance: MEDICARE A & B Discharge Planning Comments: CM met with patient to discuss discharge planning / needs. Patient states she lives home alone. States home environment is safe. Was independent prior to hospitalization. States she plans to discharge to rehab. Signed TINO for [facility] rehab. CM explained and patient signed DC IMM. Denies any other discharge planning needs at this time. CM will continue to follow and assist as needed with discharge planning / needs. Players Assistant: Priscilla Harvey DCPIA - Discharge Planning Initial Assessment Updated by [id number]: Priscilla Harvey on 07/12/20 4:14 pm * Is the patient Alert and Oriented? Yes * How many steps to enter\exit or inside your home? * PCP [facility] * Pharmacy [facility] on [address] * Preadmission Environment Home Alone * ADLs Independent * Equipment Elevated [place] Seat Grab Bars Rolling Walker Shower Chair * Other Equipment Abhilash Rollator, Adult Rollator, * List name and contact numbers for known caregivers / representatives who currently or will assist patient after discharge: Inna Moyer, did not know her phone number * Verbal permission to speak to the caregivers and representatives has been obtained from the patient. No * Community resources currently utilized None * Additional services required to return to the preadmission environment? Yes * Can the patient safely return to the preadmission environment? Yes * Has this patient been hospitalized within the prior 30 days at any hospital? No Coverage Notice Reviewer: [email or web address] Harvey Notice Issued Date-Time: 07/12/2020 15:00 Notice Type: IM Discharge Notice Notice Delivered To: Patient Relationship to Patient: Self Environmental Health Specialist Name: Delivery Method: HAND - Hand Delivered Jocelyn Days: Prior Verbal Notification: Recipient Understood Notice: Yes Recipient Signature: Yes Med Rec Note Co-signed by Attending: Coverage Notice Comment: Reviewer: VICKIE Harvey Notice Issued Date-Time: 07/12/2020 15:00 Notice Type: Patient Choice Letter Notice Delivered To: Patient Relationship to Patient: Self Environmental Health Specialist Name: Delivery Method: HAND - Hand Delivered Jocelyn Days: Prior Verbal Notification: Recipient Understood Notice: Yes Recipient Signature: Yes Med Rec Note Co-signed by Attending: Coverage Notice Comment: [facility] IRF Last DP export: 07/12/20 3:17 p Patient Name: CASEY ENGLAND Page [phone] at 0928 All edits/amendments must be made on the electronic document DICTATION DATE: 07/17/20926 FUR BLENDER: KEVON 07/17/20926 RPT#: [id number] DC DATE:07/14/20 STATUS: DIS IN [facility] [address] [place] [address] END OF REPORT
== END 2020-07-14 18:50 | DRG 746 ==
LOC: D.LD 00:05 → D.OPS 00:05 → D.PAN 07:00 → D.OPS 07:00 → D.SDCHOLD 14:42 → D.LD 20:22 → D.OPS 07-11 16:36 → D.LD 07-14 18:50
PROVIDERS: Anesthesiology; Internal Medicine Pulmonary Disease; ADMIT Obstetrics & Gynecology; ATTEND Obstetrics & Gynecology
PROC: 0UU Female Reproductive System, Supplement (ICD-10-PCS; principal; 2020-07-10 07:00)
PROC: 0JUC07Z Supplement of Pelvic Region Subcutaneous Tissue and Fascia with Autologous Tissue Substitute, Open Approach (ICD-10-PCS; 2020-07-10 07:00)
DX: N81.5 Vaginal enterocele (principal); J96.02 Acute respiratory failure with hypercapnia; J96.01 Acute respiratory failure with hypoxia; J18.9 Pneumonia, unspecified organism; I50.33 Acute on chronic diastolic (congestive) heart failure; J45.901 Unspecified asthma with (acute) exacerbation; Z68.41 Body mass index [BMI] 40.0-44.9, adult; F31.30 Bipolar disorder, current episode depressed, mild or moderate severity, unspecified; J44.0 Chronic obstructive pulmonary disease with (acute) lower respiratory infection; N81.6 Rectocele; K21.9 Gastro-esophageal reflux disease without esophagitis; G47.33 Obstructive sleep apnea (adult) (pediatric); G62.9 Polyneuropathy, unspecified; K76.0 Fatty (change of) liver, not elsewhere classified; E66.01 Morbid (severe) obesity due to excess calories; K31.84 Gastroparesis; M81.0 Age-related osteoporosis without current pathological fracture; F41.8 Other specified anxiety disorders; I11.0 Hypertensive heart disease with heart failure; Z86.73 Personal history of transient ischemic attack (TIA), and cerebral infarction without residual deficits; Z87.891 Personal history of nicotine dependence

== ENCOUNTER 2020-07-12 18:49 | Inpatient (IN) | payer MEDICARE, BC ==
[~2020-07-12] VITALS: Ht 154.9 cm; Wt 86.2 kg
--- NOTE | ~2020-07-12 | RHP ---
PATIENT: CASEY ENGLAND MEDICAL RECORD: [id number] ACCOUNT: [id number] LOCATION:[facility]11[facility] : [birth year] ADMISSION DATE: 07/14/20 REHABILITATION HISTORY AND PHYSICAL EXAMINATION POST ADMISSION PHYSICIAN EXAMINATION ADMITTING DIAGNOSIS: Debility. HISTORY OF PRESENT ILLNESS: The patient is admitted to rehab secondary to debility secondary to hypovolemic and hypercapnic respiratory failure. The patient is a 74-year-old morbidly obese female who had an elective posterior repair of a cystocele and cystoscopy. She had rectal repair and vaginal vault suspension. She has been complications including hypoxic and hypercapnic respiratory failure after this. She has had a pleural effusion. The patient had elevated BNP. The patient also had pulmonary consultation during her stay. She has been receiving supplemental O2. She has been receiving PT and progressing slowly. She is currently on an increased amount of supplemental O2 to keep her O2 sats above 92%. She has had some postop confusion. The patient is also being watched closely to monitor any areas in her vaginal and rectal area that could be giving her problems. She is on electrolyte protocol. She has got proximal muscle weakness, balance deficits, impaired mobility, decreased range of motion. She has got gait disturbance, low endurance, inability to care for herself and self-care deficits. These are all barriers to her discharge home. She lives in an apartment, was independent with ADLs and mobility prior to this. She is using a CPAP as needed. She plans to return home at her prior level of functioning or better if possible. COMORBIDITIES: In this patient include weakness, she has got morbid obesity. She has got chronic bronchitis, hypertension, fatty liver disease, osteoporosis, depression, bipolar, enterocele, cystocele and a recent cystoscopy. PAST MEDICAL HISTORY: Significant for urinary incontinence, numbness, vertigo, cataracts, trouble swallowing, blindness, edema, hypertension, heart murmur, chronic cough. She has had gastroparesis, chronic back pain, osteoporosis, knee problems. PAST SURGICAL HISTORY: Includes hysterectomy. She has got history of gallbladder, hysterectomy, hemorrhoidectomy, neck surgery and cataract removal. ALLERGIES: PINE, [place], LASIX, NITROGLYCERIN, FOSAMAX, ANY TYPE OF CONTRAST. CURRENT MEDICATIONS: Include metoprolol XL 25 mg daily. She is on Lamictal 200 mg daily, Flonase nasal spray daily, Lexapro 20 mg daily, Klonopin 0.5 mg daily, Perforomist 20 mcg daily, budesonide 0.5 mg b.i.d., Singulair 10 mg at bedtime, Reglan 5 mg at bedtime, Tylenol No. 3 one every 6 hours p.r.n., and MiraLax as needed. HABITS: No alcohol or tobacco use. FAMILY HISTORY: Noncontributory. SOCIAL HISTORY: The patient hopes to return back home and get back to her prior level of functioning. HISTORY AND PHYSICAL [id number] CASEY ENGLAND REVIEW OF SYSTEMS: GENERAL: Does complain of weakness and fatigue. HEENT: Denies cold, cough, or congestion. CARDIOVASCULAR: Denies any chest pain. PHYSICAL EXAMINATION: VITAL SIGNS: Stable, afebrile. GENERAL: A somewhat obese female, in no distress upon exam. HEENT: Normocephalic and atraumatic. Mucosa moist. NECK: Supple. No lymphadenopathy. LUNGS: Clear in upper heath with decreased breath sounds in the bases. HEART: Regular rate and rhythm. She does have a holosystolic murmur. ABDOMEN: Soft, benign, and nondistended. Positive bowel sounds times 4. EXTREMITIES: No clubbing, cyanosis. She does have a little trace of edema. NEUROLOGIC: She is somewhat slow to mentate at times and she also has some noted proximal muscle weakness. LABORATORY DATA: On admit labs, her white count is 10,000, her H&H of 11 and 35, and platelet count is noted to be 194. Her sodium is 138, potassium 3.0, BUN and creatinine of 22 and 0.8, blood sugar is noted to be 117. ASSESSMENT: This is a 74-year-old female patient admitted to rehab with a working diagnosis of debility secondary to recent surgery. The patient has potential to make improvement. We instituted the following multidisciplinary therapies including, but not limited to physical, occupational, respiratory, speech, nutritional services, prosthetics and orthotics. Given her complex medical condition and risks for more complications, rehabilitation services cannot be provided at a low level of care such as group home facility. PLAN: 1. Admit to [facility] for inpatient therapy to include the following disciplines; A. Physical therapy to improve gait, all transfer skills and bed mobility to a modified independent level. B. Occupational therapy to improve activities of daily living. C. Case management to help with discharge planning and placement options. D. Nutrition to assist with nutritional needs. E. Rehabilitation nursing to assist in monitoring the patient's underlying medical conditions and to assist with any type of bowel or bladder management. 2. The patient's current medication and medical care will be continued. 3. Placed on standard fall precautions. 4. The patient's estimated length of stay is approximately 7-10 days. 5. We will discuss the patient during care team staff meeting this week. I am going to go ahead and replace her potassium. She is requesting something for sleep, so we will give her some medicine at bedtime and she would like some Tessalon Perles for chronic cough, we do that and I will see again in the a.m. TRANSINT:[id number] Voice Confirmation ID: [id number] DOCUMENT ID: [id number] ELIZABETH notes whether there has been none or any medical/functional change since admission: - No change since preadmission screen. HISTORY AND PHYSICAL [id number] CASEY ENGLAND attests patient continues to be appropriate for IRF: - Continues to be appropriate. NIGHAT OSBORNE MD CC: [id number] DICTATION DATE: 07/15/20 1237 TITLE CLERK: 07/15/20 1522 ADM IN [place] [id number] [place] [address]
[~2020-07-12 18:49] MED LIST changes: +ACETAMINOPHEN500 M1 PO
[2020-07-14] MEDS ORDERED: TYLENOL W/CODEI1 TAB PO (18:34)
[2020-07-14] MEDS ORDERED: LAMICTAL200 M1 PO (18:35)
[2020-07-14] MEDS ORDERED: KLONOPIN0.5 MG PO (18:35)
[2020-07-14] MEDS ORDERED: LEXAPRO20 MG PO (18:36)
[2020-07-14] MEDS ORDERED: HYDROCODON-ACE1 EA10 PO (18:36)
[2020-07-14] MEDS ORDERED: REGLAN5 MG PO (18:37)
[2020-07-14] MEDS ORDERED: TOPROL XL25 MG PO (18:38)
[2020-07-14] MEDS ORDERED: FLUTICASONE PRO16 GM NASAL (18:47)
[2020-07-14] MEDS ORDERED: PULMICORT0.5 MG/21 INH (18:48)
[2020-07-14] MEDS ORDERED: SINGULAIR10 MG PO (18:48)
[2020-07-14] MEDS ORDERED: PERFOROMIS20 MCG/21 INH (18:48)
[2020-07-14] MEDS ORDERED: ALBUTEROL2.5 MG/3 M INH ×2 (18:50→18:51)
--- NOTE | 2020-07-14 20:20 | NUR ---
RECEIVED IN PATIENT'S BATHROOM. AWAKE AND ALERT. DENIES ANY NEEDS AT THIS TIME. ASSESSMENT COMPLETED. MONITOR FOR SAFETY, CALL LIGHT IN REACH. CPOC.
--- NOTE | 2020-07-15 04:01 | NUR ---
PATIENT AWAKE SITTING ON BEDSIDE FILLING OUT MENU. NO C/O PAIN OR DISTRESS AT THIS TIME. BED LOW. ALARM ON. CALL LIGHT WITHIN REACH. WILL CONTINUE TO MONITOR.
[2020-07-15 05:12] VITALS: BP 126/59
[2020-07-15 05:14] VITALS: BP 126/59; BMI 35.9
[2020-07-15 05:59] LABS: BASOPHILS 0 % (0-2); EOSINOPHILS 0.1 % (0-7); HEMATOCRIT 35.7 % (36.0-48.0); HEMOGLOBIN 10.6 g/dL (12-16); IMMATURE GRANULOCYTES 0.6 % (0-5); MCH 27.7 pg (26.0-34.0); MCHC 29.7 g/dL (31.0-37.0); MCV 93.2 fL (80.0-100.0); MEAN PLATELET VOLUME 9.1 fL (7.4-10.4); MONOCYTES 7.2 % (2-11); NEUTROPHILS 62.1 % (40-80); RBC 3.83 10x6/uL (4.00-5.40); RDW 13.7 % (11.5-14.5)
[2020-07-15 06:13] LABS: PLATELET COUNT 194 10x3/uL (130-400)
[2020-07-15 06:38] LABS: ANION GAP 10.9 mmol/L (8-16); CALCIUM 9.1 mg/dL (8.5-10.1); CARBON DIOXIDE 32.1 mmol/L (21.0-32.0); CREATININE - SERUM 0.8 mg/dL (0.6-1.3)
[2020-07-15 08:00] VITALS: BP 153/58
--- NOTE | 2020-07-15 08:00 | NUR ---
SHIFT ASSMT COMPLETED.SITTING UP ON SIDE OF BED.BREAKFAST GIVEN.
[2020-07-15 11:19] VITALS: Ht 154.9 cm; Wt 86.2 kg
--- NOTE | 2020-07-15 12:00 | NUR ---
SITTING UP IN WC IN ROOM EATING LUNCH.INDEPENDENT IN ROOM.CL IN REACH.USES PERSONAL RW AND SAFETY PRECAUTIONS.
[2020-07-15 20:00] VITALS: BP 134/57
--- NOTE | 2020-07-15 21:00 | NUR ---
SITTING IN W/C WATCHING TV. ADMINISTERED PRESCRIBED MEDICATIONS. ASSESSMENT COMPLETED.
--- NOTE | 2020-07-16 04:52 | NUR ---
RESTING IN BED WITH EYES CLOSED. NO S/S OF DISTRRESS NOTED. RESP EVEN AND UNLABORED. C/L IN EASY REACH. CONTINUE POC.
[2020-07-16 08:00] VITALS: BP 114/41
--- NOTE | 2020-07-16 08:00 | NUR ---
SHIFT ASSMT COMPLETED.BREAKFAST GIVEN.UP ADLIB IN ROOM WITH RWQ.CL IN REACH.
--- NOTE | 2020-07-16 12:00 | NUR ---
SITTING UP ON SIDE OF BED EATING LUNCH.VISITOR AT BEDSIDE.
--- NOTE | 2020-07-16 16:00 | NUR ---
SITTING UP IN WC AT BEDSIDE.CL IN REACH.
[2020-07-16 20:21] VITALS: BP 118/42
[2020-07-17 00:25] VITALS: BP 134/59
--- NOTE | 2020-07-17 10:36 | NUR ---
HAS BEEN UP WALKING AROUND IN ROOM. SHE USES WALKER FOR AMBULATION ASST. NO SKIN BREAKDOWN NOTED. DENIES INCREASED PAIN.
--- NOTE | 2020-07-17 13:07 | NUR ---
SITTING UP IN WC IN THERAPY. DENIES INCREASED PAIN.
--- NOTE | 2020-07-17 17:37 | NUR ---
SITTING ON SIDE OF BED EATING SUPPER. HAD SHOWER AND WAS ABLE TO DO MOST OF IT HERSELF. SHE IS UNBALANCED AND UNSTEADY BUT CAN REACH HER FEET AND BEND OVER. NO SKIN BREAKDOWN NOTED. DENIES INCREASED PAIN. CALL LIGHT IN REACH
--- NOTE | 2020-07-17 19:03 | NUR ---
RECEIVED SHIFT REPORT, INFORMED PT THAT I WILL BE BACK SHORTLY TO DO ASSESSMENT, PT VERBALIZES UNDERSTANDING, REQUESTS SALINE LOCK TO BE REMOVED, REPORTS THAT IT IS HURTING, INFORMED PT THAT I WILL TAKE IT OUT WHEN I COME BACK, PT VERBALIZES UNDERSTANDING, DENIES FURTHER NEEDS
[2020-07-17 20:00] VITALS: BP 145/100
--- NOTE | 2020-07-17 20:00 | NUR ---
ASSESSMENT PER FLOW SHEET, VS OBTAINED, PT REPORTS FLATUS, BMX2 TODAY, AND VOIDING WITH NO DIFFICULTY, PT REPORTS SCANT VAG BLEEDING OCCASSIONALLY, PT SALINE LOCK REMOVED, TIP INTACT, PRESSURE HELD, BANDAID APPLIED, PT DENIES NEEDS OR PAIN AT THIS TIME, PT UP IN WC
[2020-07-17 21:31] VITALS: BP 93/69
--- NOTE | 2020-07-17 21:31 | NUR ---
ADM 2100 MEDS PER MD ORDERS, SEE EMAR, WITH FRESH H20, PT DENIES NEEDS OR PAIN AT THIS TIME
--- NOTE | 2020-07-17 21:31 | NUR ---
LATE ENTRY: OBTAINED BP
--- NOTE | 2020-07-17 22:30 | NUR ---
PT CONTINUES SITTING UP IN WC, TALKING ON PHONE, DENIES NEEDS OR PAIN
--- NOTE | 2020-07-18 00:28 | NUR ---
PT TO NURSES DESK VIA WC, REQUESTED AND PROVIDED MILK AND CUP OF ICE, DENIES FURTHER NEEDS, PT BACK TO ROOM
--- NOTE | 2020-07-18 02:16 | NUR ---
PT RESTING WITH EYES CLOSED, RESP QUIET, NO DISTRESS NOTED, LEFT UNDISTURBED AT THIS TIME, FALL PRECAUTIONS IN PLACED
--- NOTE | 2020-07-18 04:20 | NUR ---
PT RESTING WITH EYES CLOSED, RESP QUIET, NO DISTRESS NOTED, LEFT UNDISTURBED AT THIS TIME, FALL PRECAUTIONS IN PLACED
--- NOTE | 2020-07-18 06:18 | NUR ---
PT RESTING WITH EYES CLOSED, AROUSES TO SOFT VERBAL STIMUALTION, ADM 0700 MED PER MD ORDERS, SEE EMAR, PT DENIES NEEDS OR PAIN, TRASH REMOVED
[2020-07-18 08:00] VITALS: BP 132/54
--- NOTE | 2020-07-18 11:33 | NUR ---
Nutrition Follow-up: Diet: Regular PO intake: ~58% average x last 9 meals Last BM: 07/17/20 x 2. Wt: 190# (07/15/20) Meds noted: prednisone, reglan, k-dur. Labs noted: K 3.0(L), Glu 117(H). Recommend continue current diet. Patient previously with good appetite (PO intake ~75%) while in acute care. Hopefully appetite will improve, prednisone may increase appetite stome. Will continue to monitor. Offer oral nutrition supplements. RD following.
--- NOTE | 2020-07-18 12:26 | NUR ---
SITTING UP IN WC IN ROOM TALKING TO VISITOR. DENIES NEEDS OR PAIN. CALL LIGHT IN REACH
--- NOTE | 2020-07-18 12:31 | NUR ---
PATIENT ADMITTED TO REHAB FROM ACUTE FLOOR. HER PCP IS DR. DE LA GARZA. DME AT HOME IS A WALKER AND A SHOWER CHAIR. DISCHARGE PLANS ARE FOR HER TO RETURN HOME. WILL CONTINUE TO FOLLOW WITH PATIENT.
--- NOTE | 2020-07-18 19:40 | NUR ---
PT IN BED WATCHING TV, NO NEEDS NOTED, RESPIRATIONS EVEN/UNLABORED, FALL PRECAUTIONS IN PLACE, FLUIDS/CALL LIGHT WITHIN REACH
[2020-07-18 23:00] VITALS: BP 162/50
[2020-07-19 06:21] LABS: BASOPHILS 0.1 % (0-2); EOSINOPHILS 2.7 % (0-7); HEMATOCRIT 35.2 % (36.0-48.0); HEMOGLOBIN 10.7 g/dL (12-16); IMMATURE GRANULOCYTES 0.9 % (0-5); LYMPHOCYTES 29.7 % (15-50); MCHC 30.4 g/dL (31.0-37.0); MCV 92.1 fL (80.0-100.0); MEAN PLATELET VOLUME 9.2 fL (7.4-10.4); MONOCYTES 6.5 % (2-11); NEUTROPHILS 60.1 % (40-80); PLATELET COUNT 195 10x3/uL (130-400); RBC 3.82 10x6/uL (4.00-5.40); RDW 14.4 % (11.5-14.5); WBC 8.8 10x3/uL (4.8-10.8)
[2020-07-19 07:09] LABS: CALCIUM 8.9 mg/dL (8.5-10.1); CARBON DIOXIDE 27.8 mmol/L (21.0-32.0); CREATININE - SERUM 0.9 mg/dL (0.6-1.3); POTASSIUM - SERUM 4.8 mmol/L (3.5-5.1)
--- NOTE | 2020-07-19 08:00 | NUR ---
UP IN CHAIR EATING BREAKFAST, DENIES ANY NEEDS AT THIS TIME, C/L AND FLUIDS IN REACH.
[2020-07-19 08:10] VITALS: BP 157/62
--- NOTE | 2020-07-19 11:58 | NUR ---
UP IN ROOM WATCHING TV, DENIES ANY NEEDS AT THIS TIME, C/L AND FLUIDS IN REACH.
--- NOTE | 2020-07-19 12:08 | NUR ---
I have reviewed this patient and I concur with the Shift Assessment completed by the Licensed Practical Nurse today this shift.
--- NOTE | 2020-07-19 13:21 | NUR ---
CARE TEAM MEETING: PATIENT HAS DONE VERY WELL IN THERAPY AND WILL DC HOME IN THE AM 07/20/20. WILL CONTINUE TO FOLLOW WITH PATIENT.
--- NOTE | 2020-07-19 16:38 | NUR ---
SITTING ON SIDE OF BED PACKING FOR D/C, DENIES ANY NEEDS AT THIS TIME, C/L AND FLUIDS IN REACH.
[2020-07-19 23:19] VITALS: BP 108/60
--- NOTE | 2020-07-19 23:19 | NUR ---
PT IN BED WATCHING TV, NO NEEDS NOTED, RESPIRATIONS EVEN/UNLABORED, FALL PRECAUTIONS IN PLACE, FLUIDS/CALL LIGHT WITHIN REACH
--- NOTE | 2020-07-20 06:28 | NUR ---
PT IN BED WATCHING TV, NO NEEDS NOTED, RESPIRATIONS EVEN/UNLABORED, FALL PRECAUTIONS IN PLACE, FLUIDS/CALL LIGHT WITHIN REACH
[2020-07-20 08:01] VITALS: BP 150/52
--- NOTE | 2020-07-20 08:06 | NUR ---
SITTING UP ON SIDE OF BED EATING BREAKFAST, DENIES ANY NEEDS AT THIS TIME, C/L AND FLUIDS IN REACH.
[2020-07-20] MEDS ORDERED: OMNICEF300 MG PO (08:33)
[2020-07-20] MEDS ORDERED: PREDNISONE20 MG PO (08:34)
--- NOTE | 2020-07-20 09:24 | NUR ---
PATIENT DISCHARGING TO HER HOME TODAY. [facility] WILL PROVIDE THERAPY AT HOME.NO NEW DME NEEDED AT THIS TIME. PATIENT WILL MAKE AN APPOINTMENT WITH DR. DE LA GARZA FOR FOLLOW UP. DR. MORIN 07/25/20 @ 9:00. TINO SIGNED, IMM SERVED AND EXPLAINED, ONE GIVEN TO PATIENT AND ONE FILED IN CHART. NO COMPARE DATA REVIEWED PER PATIENT REQUEST. DC INSTRUCTIONS FAXED TO PCP, HOME HEALTH AND REVIEWED WITH PATIENT PER PRIMARY NURSE.
--- NOTE | 2020-07-20 10:00 | NUR ---
I have reviewed this patient and I concur with the Shift Assessment completed by the Licensed Practical Nurse today this shift.
--- NOTE | 2020-07-20 10:31 | NUR ---
PATIENT D/C TO HOME VIA W/C WITH FAMILY AND ALL PERSONAL BELONGINGS. REVIEWED MEDICATIONS, FOLLOW UP APPOINTMENTS AND HOME HEALTH CARE. MEDICATIONS CALLED INTO [facility] [address].
== END 2020-07-20 10:30 | disposition home health service (06) | DRG 947 ==
LOC: D.REHAB 18:49
PROVIDERS: ADMIT Emergency Medicine; ATTEND Emergency Medicine
DX: R53.81 Other malaise (principal); J96.02 Acute respiratory failure with hypercapnia; J96.01 Acute respiratory failure with hypoxia; R53.1 Weakness; E66.01 Morbid (severe) obesity due to excess calories; J42 Unspecified chronic bronchitis; I10 Essential (primary) hypertension; K76.0 Fatty (change of) liver, not elsewhere classified; M81.0 Age-related osteoporosis without current pathological fracture; F31.9 Bipolar disorder, unspecified; N81.10 Cystocele, unspecified; K46.9 Unspecified abdominal hernia without obstruction or gangrene; G47.33 Obstructive sleep apnea (adult) (pediatric); J30.9 Allergic rhinitis, unspecified; K21.9 Gastro-esophageal reflux disease without esophagitis; G62.9 Polyneuropathy, unspecified

== ENCOUNTER → 2020-09-12 14:54 | Outpatient (CLI) | payer MEDICARE, BC ==
[2020-07-15 11:19] VITALS: BMI 35.9
[~2020-09-12 14:54] MED LIST changes: +ALBUTEROL2.5 MG/3 M INH; +FLUTICASONE PRO16 GM NASAL; +HYDROCODON-ACE1 EA10 PO; +OMNICEF300 MG PO; +PERFOROMIS20 MCG/21 INH; +PREDNISONE20 MG PO; +PULMICORT0.5 MG/21 INH; +SINGULAIR10 MG PO
== END | disposition home or self-care (01) ==
LOC: D.LAB 14:54
PROVIDERS: ATTEND Internal Medicine Pulmonary Disease
DX: Z11.59 Encounter for screening for other viral diseases (principal)